=== PATIENT | male | born 1985 | race Caucasian/White ===

== ENCOUNTER 2020-12-04 09:41 | Emergency (ER) | payer MEDICARE, MEDICAID, SELFPAY ==
--- NOTE | ~2020-12-04 | CT_ITS ---
EXAMINATION: CT ABDOMEN AND PELVIS WITHOUT CONTRAST CLINICAL INFORMATION: Nausea/vomiting/diarrhea and left lower quadrant abdominal pain. COMPARISON: CT abdomen pelvis 07/28/2019 TECHNIQUE: Multidetector volumetric imaging was performed from the superior aspect of the liver through the pubic symphysis. Sagittal and coronal reformatted images were obtained on the technologist's workstation. This CT examination was performed using dose optimization techniques as appropriate, variously including the following: *Automated exposure control *Adjustment of mA and/or kV according to patient size (this includes techniques or standardized protocols for targeted exams where dose is matched to indication/reason for exam; i.e. extremities or head) *Use of iterative reconstruction technique DLP: 442 mGy-cm FINDINGS: LUNG BASES: There is platelike atelectasis right lung base. The heart size is normal. There is a small hiatal hernia. LIVER, GALLBLADDER, AND BILIARY TREE: The liver is normal in size, shape, and attenuation. No focal hepatic lesion or biliary ductal dilatation is present. The gallbladder is unremarkable with no evidence of radiopaque gallstones, gallbladder wall thickening, or obvious pericholecystic inflammatory changes. PANCREAS: Unremarkable. SPLEEN: Unremarkable. ADRENAL GLANDS: Unremarkable. KIDNEYS AND URETERS: The kidneys are normal in size, shape, and attenuation. No hydronephrosis, hydroureter, or calculi seen. No perinephric stranding. BLADDER: Unremarkable. GASTROINTESTINAL TRACT: There is mild mural thickening involving the ascending transverse and descending colon but no recorded fat stranding obstruction seen. The small bowel loops are normal caliber. The appendix is not visualized. There is no free air or free fluid. ABDOMINAL WALL: No significant hernia is appreciated. LYMPH NODES: Normal. VASCULAR: Unremarkable. PELVIC VISCERA: There is no free fluid or free air. OSSEOUS STRUCTURES: There is degenerative disc changes with vacuum disc phenomena L5-S1 disc level. No lytic or sclerotic process seen. CT/CT abdomen pelvis wo con IMPRESSION: Nonspecific mild mural thickening involving the entire colon without pericolic fat stranding Scattered colonic diverticulosis without diverticulitis. No obstruction or free air seen.
[2020-12-04 09:42] VITALS: BP 149/77; PULSE 97; RESP 18; TEMP 36.8; O2SAT 97; BMI 22.5
[2020-12-04] MEDS: LORazepam 1 MG TABLET 2 MG PO (11:00)
[2020-12-04] MEDS: Acetaminophen 325 MG TABLET 975 MG PO (11:00)
[2020-12-04] MEDS: Ondansetron ODT 4 MG TAB.RAPDIS TRANSLINGU (11:01)
--- NOTE | 2020-12-04 11:03 | PC.NURSE ---
patient medicated per order, pt denies pain at this time, pt ambulating independently to bathroom to give urine, will have tech draw labs and continue to monitor.
--- NOTE | 2020-12-04 11:33 | ED.NAVMDI ---
HPI - Nausea/Vomiting/Diarrhea General Chief complaint: Nausea/Vomiting/Diarrhea Stated complaint: Nausea, vomiting,diarrea Time Seen by Provider: 12/04/20 10:24 Source: patient Mode of arrival: ambulatory Limitations: no limitations History of Present Illness HPI Narrative: 35-year-old male with a past medical history of seizure disorder and chronic back pain presenting to the ED with complaints of nausea/vomiting/diarrhea with left lower quadrant abdominal pain since with associated subjective fevers. He reports he is not vaccinated with COVID. He denies any recent travel or sick contacts or possible bad food exposure. He denies any measured fevers, chills, dizziness, headaches, chest pain, shortness of breath, cough, sore throat, radiation of the abdominal pain, worsening back pain, hematuria, dysuria, abnormal penile discharge, constipation, black or bloody stools or weakness or rashes. Patient denies any other symptoms complaints or concerns at this time. MD elicited complaint: nausea, vomiting, diarrhea and abdominal pain Onset (ago): day(s) (3 days worse today) Description of vomiting: bilious Description of diarrhea: watery Associated nausea: Yes Associated abdominal pain: Yes Location of pain: LLQ Radiation: does not radiate Pain consistency: constant Severity: severe Pain scale (0-10): 10 Quality: aching and constant Exacerbating factors: none Relieving factors: none Associated symptoms: fever/chills, loss of appetite and nausea/vomiting Related Data Previous Rx's Medication Instructions Recorded acetaminophen 500 mg tablet 1,000 mg PO QID PRN #14 tab 12/04/20 (Tylenol Extra Strength) amoxicillin 875 mg-potassium 1 tab PO BID 10 Days #20 tab 12/04/20 clavulanate 125 mg tablet (Augmentin) ibuprofen 800 mg tablet 800 mg PO Q8H PRN #14 tab 12/04/20 lorazepam 1 mg tablet (Ativan) 1 mg PO TID PRN #10 tab 12/04/20 ondansetron HCl 4 mg tablet 4 mg PO Q8H PRN #14 tab 12/04/20 (Zofran) Allergies Allergy/AdvReac Type Severity Reaction Status Date / Time No Known Allergies Allergy Unverified 01/21/20 15:25 [No Known Allergies*] Review of Systems Review of Systems: Constitutional : + Fever, + Chills, No Night Sweats, No Fatigue, No Malaise Cardiovascular : No Chest Pain, No SOB Respiratory : No Cough, No Sputum, No Wheezing, No Dyspnea Gastrointestinal : + Nausea, + Vomiting, + Diarrhea, + abdominal Pain, No Hematochezia, No Melena Genitourinary : No irregular bleeding, No Dysuria, No Urinary Frequency, No Hematuria,No Urinary Incontinence, No Urgency, No Flank Pain Musculoskeletal : No joint pain, No Myalgias, No Joint Swelling Skin : No Skin Lesions, No rash Neuro : No Weakness, No Numbness, No Paresthesias, No Loss of Consciousness, No Dizziness, No Headache Heme/Lymph: No Lymphadenopathy Endocrine : No Temperature Intolerance Yes all other systems are reviewed and are negative Gastrointestinal: Gastrointestinal: Reports nausea PMFSH Past Medical History Attestation statement: The following information was validated with the patient. Surgical History H/O hand surgery Social History Social History Alcohol intake: never Patient Tobacco Use Status: Current someday Tobacco user Use of substances other than those prescribed or required for medical reasons: Yes Substance Use Type: Marijuana Advance Directives: No Advance Directives Information Provided: No Physical Exam Vital Signs: Vital Signs: Last Vital Signs Temp 98.2 F 12/04/20 12:00 Pulse 67 12/04/20 12:00 Resp 17 12/04/20 12:00 BP 125/86 12/04/20 12:00 Pulse Ox 96 12/04/20 12:00 Body Mass Index 22.5 vital signs have been reviewed as normal and appeared to be correct. Blood pressure hypertensive 149/77. Heart rate tachycardic at 97. Respiration rate normal. Temperature normal. Oxygen saturation normal. Appearance: Alert. Oriented X3. No acute distress. Head: Normal external exam. Normocephalic. Eyes: PERRLA. EOMI. Conjunctiva and sclera normal. Eyelids normal. ENT: Pharynx normal. Uvula midline. Moist mucous membranes. Neck: Normal inspection. Neck supple. FROM. No adenopathy. No meningeal signs. CVS: Normal heart rate and rhythm. Heart sound normal. No murmurs noted. Pulses normal throughout. Respiratory: No respiratory distress. Painless inspiration. Breath sounds normal. No wheezes/rales/rhonchi noted. Chest nontender. No accessory muscle usage noted or decreased air movement noted. Abdomen: Soft and moderate tenderness to palpation to left lower quadrant with guarding. Nondistended. No rigidity. Bowel sounds normal in all 4 quadrants. No distention noted. No organomegaly noted. No visible injury noted. No rebound tenderness. Negative Rovsing sign. Negative obturator's sign. Negative psoas sign. Negative Su sign. Back: No CVA tenderness. Full range of motion noted. Skin: Skin warm and dry. Normal skin color. Normal skin turgor. No rashes/lesions/lacerations noted. Extremities: Extremities exhibit normal range of motion. Extremities nontender. Neuro: Oriented X 3. No motor deficit. No sensory deficit. Reflexes normal. Normal steady gait. Course Course Course Narrative: 10:45am - 35-year-old male with a past medical history of seizure disorder and chronic back pain presenting to the ED with complaints of nausea/vomiting/diarrhea with left lower quadrant abdominal pain since with associated subjective fevers. - patient reported that he has a phobia of needles and he wants us to place a butterfly needle to obtain labs he is refusing an IV/IV fluids and IV contrast. Once p.o. medication. Plan: Labs, CT scan abdomen and pelvis without IV contrast. Provide 2 mg of Ativan, 4 mg of Zofran and 975 mg of Tylenol then re-evaluate. Reevaluation(s) Reevaluation #1: - labs reviewed and random glucose 122. ALT 51. UA revealed 15 ketones otherwise no evidence of UTI. CT scan of abdomen pelvis revealed nonspecific mild mural thickening involving the entire colon without Rhonda colic fat stranding. Scattered colonic diverticulosis without diverticulitis. No obstruction or free air seen. Patient is tolerating p.o. fluids therefore no need for admission at this time. will DC home with symptomatic treatment and antibiotics and instructions to return if any new or worsening symptoms to follow up with primary care provider patient understands agrees with this plan. Time: 13:44 MDM - Nausea/Vomiting/Diarrhea Medical Records Attestation: I reviewed the patient's medical records. Lab Data Attestation: I reviewed the patient's lab results. Result diagrams: 12/04/20 11:36 08/01/21 11:36 Labs: Lab Results 12/04/20 12/04/20 12/04/20 Range/Units 11:36 11:36 11:36 WBC 6.3 (4.8-10.8) X10*3/uL RBC 5.23 (4.60-5.80) X10*6/uL Hgb 14.4 (14.0-18.0) g/dl Hct 43.3 (42-52) % MCV 82.8 (80-98) fL MCH 27.5 (27.0-33.0) pg MCHC 33.3 (31.0-36.0) g/dl RDW 12.0 (11.0-16.0) % Plt Count 176 (160-400) X10*3/uL MPV 12.1 (9.4-12.4) fL Immature Gran % (Auto) 0.3 (0.0-0.4) % Neut % (Auto) 68.1 (45-73) % Lymph % (Auto) 14.5 L (20-40) % Emery % (Auto) 16.7 H (2-11) % Eos % (Auto) 0.2 (0-4) % Baso % (Auto) 0.2 (0-2) % Lymph # (Auto) 0.9 L (1.2-4.9) X10*3/uL Emery # (Auto) 1.1 (0.1-1.2) X10*3/uL Eos # (Auto) 0.0 (0.0-0.4) X10*3/uL Baso # (Auto) 0.0 (0.0-0.2) X10*3/uL Abs Immat Gran (auto) 0.02 (0.00-0.03) X10*3/uL Absolute Neuts (auto) 4.3 (2.0-8.3) X10*3/uL Absolute Nucleated RBC 0.000 (0.0-0.012) X10*3/uL Nucleated RBC % (auto) 0.0 (0.0-0.2) /100WBC PT 11.3 (9.9-13.0) SEC INR 1.0 (0.9-1.1) Sodium 141 (135-145) mmol/L Potassium 3.7 (3.3-5.1) mmol/L Chloride 104 (96-108) mmol/L Carbon Dioxide 26 (22-29) mmol/L Anion Gap 15 (12-20) BUN 12 (9-16) mg/dL Creatinine 1.04 (0.5-1.4) mg/dL Estim Creat Clear Calc 112.3 Estimated GFR > 60 Random Glucose 122 H (60-115) mg/dL Calcium 9.3 (8.4-10.2) mg/dL Magnesium 1.9 (1.6-2.6) mg/dL Total Bilirubin 0.7 (0.0-1.0) mg/dL AST 37 (5-37) U/L ALT 51 H (0-40) U/L Alkaline Phosphatase 84 (39-117) U/L Total Protein 6.9 (6.5-8.0) g/dL Albumin 4.2 (3.5-5.0) g/dL Urine Color Urine Appearance Urine pH (5.0-8.0) Ur Specific [place] (1.005-1.025) Urine Protein (NEG-TRACE) MG/DL Urine Glucose (UA) (NEG) MG/DL Urine Ketones (NEG) MG/DL Urine Blood (NEG) Urine Nitrite (NEG) Ur Leukocyte Esterase (NEG) 12/04/20 Range/Units 12:28 WBC (4.8-10.8) X10*3/uL RBC (4.60-5.80) X10*6/uL Hgb (14.0-18.0) g/dl Hct (42-52) % MCV (80-98) fL MCH (27.0-33.0) pg MCHC (31.0-36.0) g/dl RDW (11.0-16.0) % Plt Count (160-400) X10*3/uL MPV (9.4-12.4) fL Immature Gran % (Auto) (0.0-0.4) % Neut % (Auto) (45-73) % Lymph % (Auto) (20-40) % Emery % (Auto) (2-11) % Eos % (Auto) (0-4) % Baso % (Auto) (0-2) % Lymph # (Auto) (1.2-4.9) X10*3/uL Emery # (Auto) (0.1-1.2) X10*3/uL Eos # (Auto) (0.0-0.4) X10*3/uL Baso # (Auto) (0.0-0.2) X10*3/uL Abs Immat Gran (auto) (0.00-0.03) X10*3/uL Absolute Neuts (auto) (2.0-8.3) X10*3/uL Absolute Nucleated RBC (0.0-0.012) X10*3/uL Nucleated RBC % (auto) (0.0-0.2) /100WBC PT (9.9-13.0) SEC INR (0.9-1.1) Sodium (135-145) mmol/L Potassium (3.3-5.1) mmol/L Chloride (96-108) mmol/L Carbon Dioxide (22-29) mmol/L Anion Gap (12-20) BUN (9-16) mg/dL Creatinine (0.5-1.4) mg/dL Estim Creat Clear Calc Estimated GFR Random Glucose (60-115) mg/dL Calcium (8.4-10.2) mg/dL Magnesium (1.6-2.6) mg/dL Total Bilirubin (0.0-1.0) mg/dL AST (5-37) U/L ALT (0-40) U/L Alkaline Phosphatase (39-117) U/L Total Protein (6.5-8.0) g/dL Albumin (3.5-5.0) g/dL Urine Color YELLOW Urine Appearance CLEAR Urine pH 6.0 (5.0-8.0) Ur Specific [place] 1.015 (1.005-1.025) Urine Protein NEG (NEG-TRACE) MG/DL Urine Glucose (UA) NEG (NEG) MG/DL Urine Ketones 15 (NEG) MG/DL Urine Blood NEG (NEG) Urine Nitrite NEG (NEG) Ur Leukocyte Esterase NEG (NEG) Imaging Data CT scan - abdomen: Attestation: I personally reviewed and interpreted this imaging study as follows: Radiologist's impression: FINDINGS: LUNG BASES: There is platelike atelectasis right lung base. The heart size is normal. There is a small hiatal hernia. LIVER, GALLBLADDER, AND BILIARY TREE: The liver is normal in size, shape, and attenuation. No focal hepatic lesion or biliary ductal dilatation is present. The gallbladder is unremarkable with no evidence of radiopaque gallstones, gallbladder wall thickening, or obvious pericholecystic inflammatory changes.? PANCREAS: Unremarkable.? SPLEEN: Unremarkable.? ADRENAL GLANDS: Unremarkable.? KIDNEYS AND URETERS: The kidneys are normal in size, shape, and attenuation. No hydronephrosis, hydroureter, or calculi seen. No perinephric stranding. ? BLADDER: Unremarkable.? GASTROINTESTINAL TRACT: There is mild mural thickening involving the ascending transverse and descending colon but no recorded fat stranding obstruction seen. The small bowel loops are normal caliber. The appendix is not visualized. There is no free air or free fluid.? ABDOMINAL WALL: No significant hernia is appreciated.? LYMPH NODES: Normal. VASCULAR: Unremarkable. PELVIC VISCERA: There is no free fluid or free air.? OSSEOUS STRUCTURES: There is degenerative disc changes with vacuum disc phenomena L5-S1 disc level. No lytic or sclerotic process seen.? CT/CT abdomen pelvis wo con IMPRESSION: Nonspecific mild mural thickening involving the entire colon without pericolic fat stranding ? Scattered colonic diverticulosis without diverticulitis. No obstruction or free air seen. Discharge Plan Discharge Clinical Impression: Diverticulosis Patient Disposition: Home, Self-Care Instructions: Diverticulosis (ED) Prescriptions: New ondansetron HCl [Zofran] 4 mg tablet 4 mg PO Q8H PRN (Reason: nausea and vomiting) Qty: 14 RF: 0 lorazepam [Ativan] 1 mg tablet 1 mg PO TID PRN (Reason: anxiety) Qty: 10 RF: 0 amoxicillin-pot clavulanate [Augmentin] 875-125 mg tablet 1 tab PO BID 10 Days Qty: 20 RF: 0 ibuprofen 800 mg tablet 800 mg PO Q8H PRN (Reason: pain) Qty: 14 RF: 0 acetaminophen [Tylenol Extra Strength] 500 mg tablet 1,000 mg PO QID PRN (Reason: fever or pain) Qty: 14 RF: 0 Referrals: Tim Oleary MD [Physician] - 2 days Stand Alone Forms: Work/School Release Print Language: Nigerien
[2020-12-04 11:44] LABS: MANUAL DIFF FLAG NO
[2020-12-04 11:47] LABS: Basophils Percent Auto 0.2 % (0-2); Eosinophils Percent Auto 0.2 % (0-4); Hematocrit 43.3 % (42-52); Hemoglobin 14.4 g/dl (14.0-18.0); Imm Gran Abs Auto 0.02 X10*3/uL (0.00-0.03); Imm Gran Pct Auto 0.3 % (0.0-0.4); Lymphocytes Absolute Auto 0.9 X10*3/uL (1.2-4.9); Lymphocytes Percent Auto 14.5 % (20-40); Mean Corpuscular HGB Conc 33.3 g/dl (31.0-36.0); Mean Corpuscular Hemoglobin 27.5 pg (27.0-33.0); Mean Corpuscular Volume 82.8 fL (80-98); Mean Platelet Volume 12.1 fL (9.4-12.4); Monocytes Absolute Auto 1.1 X10*3/uL (0.1-1.2); Monocytes Percent Auto 16.7 % (2-11); Neutrophils Absolute Auto 4.3 X10*3/uL (2.0-8.3); Neutrophils Percent Auto 68.1 % (45-73); Platelet Count 176 X10*3/uL (160-400); Red Blood Count 5.23 X10*6/uL (4.60-5.80); White Blood Count 6.3 X10*3/uL (4.8-10.8)
[2020-12-04 11:59] LABS: Prothrombin Time 11.3 SEC (9.9-13.0)
[2020-12-04 12:00] VITALS: BP 125/86; PULSE 67; RESP 17; TEMP 36.8; O2SAT 96
[2020-12-04 12:26] LABS: Alanine Aminotransferase 51 U/L (0-40); Albumin Level 4.2 g/dL (3.5-5.0); Alkaline Phosphatase 84 U/L (39-117); Anion Gap 15 (12-20); Aspartate Amino Transferase 37 U/L (5-37); Bilirubin Total 0.7 mg/dL (0.0-1.0); Blood Urea Nitrogen 12 mg/dL (9-16); Calcium 9.3 mg/dL (8.4-10.2); Carbon Dioxide 26 mmol/L (22-29); Chloride 104 mmol/L (96-108); Creatinine Clr Calc Pharmacy 112.3; Estimated Glomerular Filt Rate > 60; Glucose Random 122 mg/dL (60-115); Magnesium 1.9 mg/dL (1.6-2.6); Potassium 3.7 mmol/L (3.3-5.1); Sodium 141 mmol/L (135-145); Total Protein 6.9 g/dL (6.5-8.0)
--- NOTE | 2020-12-04 12:29 | PC.NURSE ---
urine obtained, pt states he currently has no pain or nausea, vss, will continue to monitor.
[2020-12-04 12:42] LABS: Appearance Urine CLEAR; Color Urine YELLOW; Glucose Urine UA NEG (NEG); Leukocyte Esterase Urine NEG (NEG); Nitrite Urine NEG (NEG); Specific Gravity - Urine 1.015 (1.005-1.025); Urine Blood NEG (NEG); Urine Ketones 15 MG/DL (NEG); Urine Protein NEG (NEG-TRACE)
== END 2020-12-04 13:56 | disposition home or self-care (01) ==
PROVIDERS: Physician Assistant Medical; Emergency Provider Student in an Organized Health Care Education/Training Program
DX: K57.30 Diverticulosis of large intestine without perforation or abscess without bleeding (principal); R10.32 Left lower quadrant pain; R11.2 Nausea with vomiting, unspecified; F17.200 Nicotine dependence, unspecified, uncomplicated; Z71.6 Tobacco abuse counseling; Z79.899 Other long term (current) drug therapy
CPT/HCPCS: 36415; 74176; 80053; 81003; 83735; 85025; 85610; 99284

== ENCOUNTER 2021-02-27 10:53 | Emergency (ER) | payer MEDICARE, MEDICAID, SELFPAY ==
[2021-02-27 11:01] VITALS: BP 108/78; PULSE 80; RESP 16; TEMP 37; O2SAT 96; BMI 22.5
== END 2021-02-27 18:41 | disposition left against medical advice (07) ==
LOC: HO.ED 12:48
PROVIDERS: Emergency Provider Emergency Medicine
DX: R31.9 Hematuria, unspecified (principal); M54.9 Dorsalgia, unspecified
CPT/HCPCS: 99281; 99282

== ENCOUNTER 2021-06-20 15:50 | Emergency (ER) | payer MEDICARE, MEDICAID, SELFPAY ==
--- NOTE | ~2021-06-20 | XR_ITS ---
EXAMINATION: XR TOES, RIGHT CLINICAL INFORMATION: Right total crush injury COMPARISON: None TECHNIQUE: 3 views of the right toes were obtained. FINDINGS: In the lateral view only, there is some mild irregularity at the base of the middle phalanx of the fourth toe. This could represent a fracture although it is not seen in any other. Please correlate with clinical exam. XR/XR toe RT min 2V IMPRESSION: Question of a cortical fracture seen at the base of the middle phalanx of the fourth toe appreciated only on the lateral radiograph.
[2021-06-20 16:33] VITALS: BP 140/90; PULSE 71; RESP 18; TEMP 36.8; O2SAT 99; BMI 22.5
--- NOTE | 2021-06-20 16:53 | ED.LOWEXIN ---
HPI - Extremity Injury (Lower) General Chief Complaint: Extremity Injury, Lower Stated Complaint: toe smashed by garage door Time Seen by Provider: 06/20/21 16:47 Source: patient Mode of arrival: ambulatory Limitations: no limitations History of Present Illness HPI Narrative: 35 yold male presents to the ED for right 4th toe pain. patient states garage door fell on his right foot when he pulled the garage door down. patient deneis any head trauma or any other trauma to his body. Related Data Previous Rx's Medication Instructions Recorded acetaminophen 500 mg tablet 1,000 mg PO QID PRN #14 tab 12/04/20 (Tylenol Extra Strength) amoxicillin 875 mg-potassium 1 tab PO BID 10 Days #20 tab 12/04/20 clavulanate 125 mg tablet (Augmentin) ibuprofen 800 mg tablet 800 mg PO Q8H PRN #14 tab 12/04/20 lorazepam 1 mg tablet (Ativan) 1 mg PO TID PRN #10 tab 12/04/20 ondansetron HCl 4 mg tablet 4 mg PO Q8H PRN #14 tab 12/04/20 (Zofran) naproxen 500 mg tablet 500 mg PO BID PRN 10 Days #20 tab 06/20/21 oxycodone-acetaminophen 5 mg-325 1 tab PO TID PRN 3 Days #9 tab 06/20/21 mg tablet (Percocet) Allergies Allergy/AdvReac Type Severity Reaction Status Date / Time No Known Allergies Allergy Verified 06/20/21 16:32 [No Known Allergies*] Review of Systems Review of Systems: toe pain. Yes all other systems are reviewed and are negative PMFSH Past Medical History Surgical History H/O hand surgery Social History Social History Alcohol intake: never Patient Tobacco Use Status: Current someday Tobacco user Substance Use Type: Marijuana Advance Directives: No Advance Directives Information Provided: Yes Physical Exam Vital Signs: Vital Signs: Last Vital Signs Temp 98.3 F 06/20/21 16:33 Pulse 71 06/20/21 16:33 Resp 18 06/20/21 16:33 BP 140/90 H 06/20/21 16:33 Pulse Ox 99 06/20/21 16:33 BMI result Body Mass Index 22.5 Const: General: cooperative, healthy appearing, comfortable, no acute distress, well developed, alert, awake and Physically active Orientation/consciousness: patient oriented x3 HENMT: Head: Yes normal to inspection, Yes No palpable skull fracture present, Yes normocephalic, Yes atraumatic and No abrasion Eyes: General: appearance normal, both eyes and all related structures Neck: Neck: Yes normal visual inspection, Yes full ROM, Yes no lymphadenopathy, Yes no meningeal signs, Yes trachea midline, Yes supple, No anterior neck swelling and No tender Chest: Chest palpation & inspection: normal inspection of the chest and normal palpation of entire chest wall Resp: Effort & Inspection: normal respiratory effort and able to speak in complete sentences Auscultation: clear to auscultation bilaterally Cardio: Jugular venous distension: no JVD Heart sounds: S1 normal heart sound present and S2 normal heart sound present GI: Inspection: Yes normal to inspection and No abdominal wall ecchymosis Palpation (GI): Soft to palpation, not firm, nontender, no guarding and not rigid : General: No CVA tenderness and Yes no CVA tenderness Back/Spine/Pelvis: Back: no CVA tenderness, No CVA tenderness and No back tenderness Skin: General skin exam: no rashes or lesions noted and elasticity normal Neuro: General: patient oriented x3, gait normal, no meningeal signs and CN's II-XI intact bilaterally Cranial nerves: Yes CN's II-XII intact bilaterally Extrem: General: Yes normal to inspection and Yes full ROM Ankle/foot/toe images: 1. positive for ecchymossis, tenderness, and swelling. capillary refill intact. Rest of lower extremity is normal and motor/neuro/vascular exam is intact. Course Course Course Narrative: Patient sent for foot xray Reevaluation(s) Reevaluation #1: Xray shows 4th toe phalanx fracture. Will order kathia tape and post op shoe Time: 17:24 MDM - Extremity Injury (Lower) MDM Narrative Medical decision making narrative: toe fracture Discharge Plan Discharge Clinical Impression: Fracture of toe Patient Disposition: Home, Self-Care Instructions: Toe Fracture (ED) Additional Instructions: X-ray shows toe fracture. You any follow-up with the orthopedic surgeon. Return to ED for worsening pain, swelling of extremity, redness, pus discharge, fever, chills, hotness, coolness, red streaks, or any other concerning symptoms. Prescriptions: New naproxen 500 mg tablet 500 mg PO BID PRN (Reason: pain) 10 Days Qty: 20 0RF oxycodone-acetaminophen [Percocet] 5-325 mg tablet 1 tab PO TID PRN (Reason: pain) 3 Days Qty: 9 0RF Rx Instructions: side effect is drowsiness. Do not take at work or while driving. No Action ondansetron HCl [Zofran] 4 mg tablet 4 mg PO Q8H PRN (Reason: nausea and vomiting) Qty: 14 0RF lorazepam [Ativan] 1 mg tablet 1 mg PO TID PRN (Reason: anxiety) Qty: 10 0RF amoxicillin-pot clavulanate [Augmentin] 875-125 mg tablet 1 tab PO BID 10 Days Qty: 20 0RF ibuprofen 800 mg tablet 800 mg PO Q8H PRN (Reason: pain) Qty: 14 0RF acetaminophen [Tylenol Extra Strength] 500 mg tablet 1,000 mg PO QID PRN (Reason: fever or pain) Qty: 14 0RF Referrals: Bala Caba MD [Physician] - 2 days (Right 4th toe fracture) Stand Alone Forms: Work/School Release Interventions: ED Discharge Assessment Last Done: 06/20/21 18:19 Discharge Date/Time: 06/20/21 18:21 Print Language: Japanese
[2021-06-20] MEDS: oxyCODONE HCl Immed Release 5 MG TABLET PO (16:54)
[2021-06-20] MEDS: Ibuprofen 800 MG TABLET PO (16:59)
== END 2021-06-20 18:21 | disposition home or self-care (01) ==
PROVIDERS: Emergency Provider Internal Medicine
DX: S92.511A Displaced fracture of proximal phalanx of right lesser toe(s), initial encounter for closed fracture (principal); M79.671 Pain in right foot; F17.200 Nicotine dependence, unspecified, uncomplicated; F12.90 Cannabis use, unspecified, uncomplicated; Y29.XXXA Contact with blunt object, undetermined intent, initial encounter; Y93.9 Activity, unspecified; Y92.009 Unspecified place in unspecified non-institutional (private) residence as the place of occurrence of the external cause; Y99.9 Unspecified external cause status; Z79.899 Other long term (current) drug therapy; Z71.6 Tobacco abuse counseling
CPT/HCPCS: 73660; 99283

== ENCOUNTER 2021-06-28 21:35 | Emergency (ER) | payer MEDICARE, MEDICAID, SELFPAY ==
--- NOTE | ~2021-06-28 | XR_ITS ---
EXAMINATION: X-RAY RIGHT HAND CLINICAL INFORMATION: Injury. COMPARISON: Radiograph of the right hand dated from 04/18/2017. TECHNIQUE: 4 views of the right hand were obtained. FINDINGS: No acute fractures or malalignment. Redemonstration of an old small avulsion fracture at the lateral base of the proximal phalanx of the middle finger. Joint alignment is maintained. No foreign bodies. XR/XR hand wrist RT IMPRESSION: No acute fractures or malalignment. Old avulsion fracture in the base of the proximal phalanx of the middle finger.
[2021-06-28 21:45] VITALS: BP 135/89; PULSE 76; RESP 18; TEMP 37.1; O2SAT 98; BMI 22.5
--- NOTE | 2021-06-28 23:05 | ED_ITS ---
HPI - Extremity Problem General Chief complaint: Extremity Injury, Upper Stated complaint: pain in right hand,,punched door Time Seen by Provider: 06/28/21 23:05 Source: patient Mode of arrival: ambulatory Limitations: no limitations History of Present Illness HPI Narrative: 35-year-old male presents to the emergency department status post punching a brick wall with his right hand now complaining of severe right hand/wrist pain. This occurred prior to his arrival. Reports 8 and 10 pain non radiating. Worse with movement better at rest. Denies numbness, tingling, chest pain, shortness of breath, loss of sensation. He is [id number]. MD Complaint: joint paint Onset (ago): hour(s) (1) Pain Consistency: constant Location: right Severity scale (1-10): 8 Quality: constant Radiation: none Relieving factors: immobilization Exacerbating factors: range of motion Associated symptoms: denies other symptoms Related Data Previous Rx's Medication Instructions Recorded acetaminophen 500 mg tablet 1,000 mg PO QID PRN #14 tab 12/04/20 (Tylenol Extra Strength) amoxicillin 875 mg-potassium 1 tab PO BID 10 Days #20 tab 12/04/20 clavulanate 125 mg tablet (Augmentin) ibuprofen 800 mg tablet 800 mg PO Q8H PRN #14 tab 12/04/20 lorazepam 1 mg tablet (Ativan) 1 mg PO TID PRN #10 tab 12/04/20 ondansetron HCl 4 mg tablet 4 mg PO Q8H PRN #14 tab 12/04/20 (Zofran) naproxen 500 mg tablet 500 mg PO BID PRN 10 Days #20 tab 06/20/21 oxycodone-acetaminophen 5 mg-325 1 tab PO TID PRN 3 Days #9 tab 06/20/21 mg tablet (Percocet) Allergies Allergy/AdvReac Type Severity Reaction Status Date / Time No Known Allergies Allergy Verified 06/28/21 21:45 [No Known Allergies*] Review of Systems Review of Systems: Constitutional : No Weight loss, No Fever, No Chills, No Fatigue, No Malaise ENT/Mouth : No sore throat, No Rhinorrhea Eyes: No Eye Pain, No Swelling, No Redness Cardiovascular : No Chest Pain, No SOB, No Dyspnea on Exertion, No Orthopnea, No Edema, No Palpitations Respiratory : No Cough, No Sputum, No Wheezing Gastrointestinal : No Nausea, No Vomiting, No Diarrhea, No Constipation, No abdominal Pain, No Hematochezia, No Melena Genitourinary : No Dysuria, No Urinary Frequency, No Hematuria, Musculoskeletal : + joint pain, No Myalgias, No Joint Swelling Skin : No Skin Lesions, No rash Neuro : No Weakness, No Numbness, No Dizziness, No Headache Psych : No Anxiety/Panic, No Depression All other systems reviewed and are negative Yes all other systems are reviewed and are negative [facility] Past Medical History Attestation statement: The following information was validated with the patient. Source: old records reviewed and nursing notes reviewed Surgical History H/O hand surgery Social History Social History Alcohol intake: never Patient Tobacco Use Status: Current someday Tobacco user Substance Use Type: Marijuana Advance Directives: No Physical Exam Vital Signs: Vital Signs: Last Vital Signs Temp 98.7 F 06/28/21 21:45 Pulse 76 06/28/21 21:45 Resp 18 06/28/21 21:45 BP 135/89 06/28/21 21:45 Pulse Ox 98 06/28/21 21:45 BMI result Body Mass Index 22.5 Appearance: Alert.? Oriented X3.? No acute distress.? Head: Normocephalic, atraumatic, no step-offs or deformities Eyes: Pupils equal, round and reactive to light.? ENT: Pharynx normal.? Neck: Normal inspection.? Neck supple.? CVS: Normal heart rate and rhythm.? Pulses normal.? Respiratory: No respiratory distress.? Breath sounds normal.? Abdomen: Soft and nontender.? Skin: Skin warm and dry.? Normal skin color.? Normal skin turgor.? Extremities: No lower extremity edema.? No calf ttp. 5/5 strength to bilateral upper and lower extremities 2+ radial pulses equal and bilateral. Cap refil < 2 seconds. Can wiggle all fingers b/l. +Pain with making a wrist w/ right hand. Sensory and motor intact. Pain to palpation of finger 3-4. Tells me it hurts to move fingers but he is able to do it. + right hand ecchymosis and pain w/ palpation to dorsal aspect. No evident ligament or tendon involvement. Back: No midline tenderness, no C-spine tenderness, full range of motion, no CVA tenderness bilaterally Neuro: Oriented X 3.? No motor deficit.? No sensory deficit. CN 2-12 intact Course Reevaluation(s) Reevaluation #1: X-ray shows no acute fractures or malalignment. An old avulsion fractures noted in the base of the proximal phalanx of the middle finger. No acute findings. At this time patient will be discharged home. Given Tylenol for pain. Will yane wrap patients hand Time: 23:08 MDM - Extremity (Nontraumatic) MDM Narrative Medical decision making narrative: [id number] 35 yo m no pmhx presents w/ right hand pain s/p punching a wall today out of anger. Reports pain worse with movement PE significant for pain with making a fist with right hand and with pain to palpation of finger 3-4. Tells me it hurts to move fingers but he is able to do it. Plan- xray Medical Records Attestation: I reviewed the patient's medical records. Lab Data Attestation: I reviewed the patient's lab results. Critical Care Time Critical Care Time Critical Care Time: No Discharge Plan Discharge Clinical Impression: Hand pain Patient Disposition: Home, Self-Care Instructions: R.I.C.E. Treatment (ED) Additional Instructions: Take your medications as prescribed. If you were prescribed antibiotics today, it is important that you take your medication to their entirety, do not skip any doses, do not finish them early. Follow-up with your primary care provider this week. Return to the emergency department with new or worsening symptoms. Such as swelling to the extremity, pain, loss of sensation numbness, tingling, fevers, chills, nausea, vomiting, headache, dizziness. You can take ibuprofen every 6 hours, Tylenol every 4 as needed for pain. In case of emergency call 911 Prescriptions: No Action ondansetron HCl [Zofran] 4 mg tablet 4 mg PO Q8H PRN (Reason: nausea and vomiting) Qty: 14 0RF lorazepam [Ativan] 1 mg tablet 1 mg PO TID PRN (Reason: anxiety) Qty: 10 0RF amoxicillin-pot clavulanate [Augmentin] 875-125 mg tablet 1 tab PO BID 10 Days Qty: 20 0RF ibuprofen 800 mg tablet 800 mg PO Q8H PRN (Reason: pain) Qty: 14 0RF acetaminophen [Tylenol Extra Strength] 500 mg tablet 1,000 mg PO QID PRN (Reason: fever or pain) Qty: 14 0RF naproxen 500 mg tablet 500 mg PO BID PRN (Reason: pain) 10 Days Qty: 20 0RF oxycodone-acetaminophen [Percocet] 5-325 mg tablet 1 tab PO TID PRN (Reason: pain) 3 Days Qty: 9 0RF Rx Instructions: side effect is drowsiness. Do not take at work or while driving. Referrals: Physician,None [Primary Care Provider] - 2 days Margi Pereira MD [Physician] - 2 weeks Stand Alone Forms: Work/School Release
[2021-06-28] MEDS: Acetaminophen 325 MG TABLET 975 MG PO (23:38)
== END 2021-06-29 00:09 | disposition home or self-care (01) ==
LOC: HO.ED 23:22
PROVIDERS: Emergency Provider Emergency Medicine
DX: M79.641 Pain in right hand (principal)
CPT/HCPCS: 73110; 73130; 99283; 99284

== ENCOUNTER 2021-07-13 08:40 | Outpatient (REF) | payer MEDICARE, MEDICAID, SELFPAY | END 2021-07-13 08:41 | disposition home or self-care (01) | LOC: HO.HOSX 08:40 | PROVIDERS: Visit Provider Physician Assistant | DX: Z13.89 Encounter for screening for other disorder (principal) ==

== ENCOUNTER 2021-10-27 10:20 | Emergency (ER) | payer MEDICARE, MEDICAID, SELFPAY ==
--- NOTE | ~2021-10-27 | XR_ITS ---
EXAMINATION: XR FOOT, RIGHT CLINICAL INFORMATION: Pain. Trauma. COMPARISON: None TECHNIQUE: AP, lateral, and oblique views of the right foot. FINDINGS: Bone alignment is normal. No fracture or dislocation is seen. There is soft tissue swelling over the metatarsal bones. There is a small 1 to 2 mm radiopaque density or calcification in the soft tissues in between the third and fourth toes. This is new from June 2021 exam XR/XR foot RT min 3V IMPRESSION: Soft tissue swelling. No fracture seen.
[2021-10-27 10:21] VITALS: BP 121/81; PULSE 88; RESP 18; TEMP 36.6; O2SAT 98; BMI 23.2
--- NOTE | 2021-10-27 10:28 | ED_ITS ---
HPI - Extremity Injury (Lower) General Chief Complaint: Extremity Injury, Lower Stated Complaint: foot INJ Time Seen by Provider: 10/27/21 10:28 Source: patient Mode of arrival: wheelchair Limitations: no limitations History of Present Illness HPI Narrative: Patient is a 35 year old male presenting to the emergency department today with right foot pain. Patient states that that a heavy metal object was dropped on his right foot and now he is having pain. Patient denies any dizziness, lightheadedness, abdominal pain, nausea, vomiting, fever, chills, blurry vision, double vision, loss of vision, chest pain, difficulty breathing, shortness of breath, back pain, night sweats, pain with urination, increased urinary frequency, increased urinary urgency, blood in his urine or stool, syncope or a near syncopal episode, recent trauma or falls, bowel incontinence, bladder incontinence, bowel retention, bladder retention, or any other complaints at this time. MD complaint: foot injury Onset (ago): minute(s) Type of Injury: blunt Severity: mild Severity scale (1-10): 3 Relieving factors: nothing Exacerbating factors: nothing Context: direct blow Other symptoms: none Related Data Previous Rx's Medication Instructions Recorded acetaminophen 500 mg tablet 1,000 mg PO QID PRN fever or pain 12/04/20 (Tylenol Extra Strength) #14 tabs amoxicillin 875 mg-potassium 1 tab PO BID 10 days #20 tabs 12/04/20 clavulanate 125 mg tablet (Augmentin) ibuprofen 800 mg tablet 800 mg PO Q8H PRN pain #14 tabs 12/04/20 lorazepam 1 mg tablet (Ativan) 1 mg PO TID PRN anxiety #10 tabs 12/04/20 ondansetron HCl 4 mg tablet 4 mg PO Q8H PRN nausea and 12/04/20 (Zofran) vomiting #14 tabs naproxen 500 mg tablet 500 mg PO BID PRN pain 10 days #20 06/20/21 tabs oxycodone-acetaminophen 5 mg-325 1 tab PO TID PRN pain 3 days #9 06/20/21 mg tablet (Percocet) tabs Allergies Allergy/AdvReac Type Severity Reaction Status Date / Time No Known Allergies Allergy Verified 06/28/21 21:45 [No Known Allergies*] Review of Systems Constitutional: Constitutional: Reports no additional constitutional complaints, Denies chills, Denies fever(s) and Denies night sweats Eyes: Eyes: Reports no additional eye complaints, Denies blurry vision, Denies change in vision, Denies diplopia, Denies eye discharge, Denies loss of vision and Denies eye pain ENT: Denies dizziness Cardiovascular: Cardiovascular: Reports no additional cardiovascular com plaints, Denies chest pain, Denies lightheadedness, Denies Loss of Consciousness and Denies dyspnea Respiratory: Respiratory: Reports no additional respiratory complaints and Denies dyspnea Gastrointestinal: Gastrointestinal: Reports no additional gastrointestinal complaints, Denies abdominal pain, Denies melena, Denies hematochezia, Denies change in bowel habits and Denies change in stool character Genitourinary: Genitourinary: Reports no additional male genitourinary complaints, Denies hematuria, Denies oliguria, Denies difficulty urinating, Denies dysuria, Denies urinary frequency, Denies urinary hesitancy, Denies urinary incontinence and Denies urinary urgency Musculoskeletal: Musculoskeletal: Reports no additional musculoskeletal complaints, Denies numbness and Denies tingling Comments: right foot pain Neurologic: Denies dizziness, Denies loss of vision, Denies numbness and Denies tingling Psychiatric: Psychiatric: Reports no additional psychiatric complaints Endocrine: Endocrine: Reports no additional endocrine complaints Hematologic/Lymphatic: Hematologic/Lymphatic: Reports no additional hematologic/lymphatic complaints Allergic/Immunologic: Allergic/Immunologic: Reports no additional allergic/immunologic complaints [facility] Past Medical History Attestation statement: The following information was validated with the patient. Source: old records reviewed Surgical History H/O hand surgery Social History Social History Alcohol intake: never Patient Tobacco Use Status: Current someday Tobacco user Substance Use Type: Marijuana Advance Directives: No Advance Directives Information Provided: Yes Physical Exam Vital Signs: Vital Signs: Last Vital Signs Temp 98 F 10/27/21 10:21 Pulse 88 10/27/21 10:21 Resp 18 10/27/21 10:21 BP 121/81 10/27/21 10:21 Pulse Ox 98 10/27/21 10:21 O2 Del Method 10/27/21 10:21 BMI result Body Mass Index 23.2 Const: General: cooperative, no acute distress, alert and awake Nutritional Appearance: well nourished Orientation/consciousness: patient oriented x3 Limitations: no limitations HEENT: Head: Yes normal to inspection and Yes atraumatic Ears: hearing grossly normal bilaterally and external ears normal General nose exam: Normal external nose present, no nasal discharge noted and no epistaxis Face and sinus: Yes normal facial exam, No abrasion and No laceration Mouth: Normal oral and palatal mucosa present, no drooling and no muffled voice Eyes: General: appearance normal, both eyes and all related structures Periorbital: periorbital findings normal Eyelids: Yes eyelids normal Conjunctivae: conjunctivae normal Pupils: Equal, round and reactive pupils present EOM: EOMs intact bilaterally Neck: Neck: Yes normal visual inspection, Yes full ROM and Yes no lymphadenopathy Chest: Chest palpation & inspection: normal inspection of the chest Resp: Effort & Inspection: normal respiratory effort and able to speak in complete sentences Auscultation: clear to auscultation bilaterally Cardio: Rate: regular rate Rhythm: regular rhythm GI: Inspection: Yes normal to inspection Neuro: General: patient oriented x3 and moves all extremities Cranial nerves: Yes Equal, round and reactive pupils present Cognition (Neuro): normal cognition Motor exam (neuro): 5/5 motor strength present throughout Sensory Exam: Normal double simultaneous stimulation for sensation Coordination: [id number] test normal Extrem: Other: bruising to the dorsal aspect of the right foot General: Yes full ROM and Yes capillary refill normal Psych: Appearance: grossly normal Mental Status: mental status grossly normal Affect: normal affect Attitude: cooperative Thought process: Normal thought process present Thought content: Normal thought content present Insight: Good insight present (Psych) MDM - Extremity Injury (Lower) MDM Narrative Medical decision making narrative: Patient is a 35 year old male presenting to the emergency department today with right foot pain. Patient's physical exam showed mild bruising to the dorsal aspect of the right foot. Patient's right foot x-ray showed no acute process. I explained my physical exam findings as well as all test results to the patient. I answered all questions asked by the patient. Patient received PO Tylenol which he stated helped his pain significantly. Due to the patient's pain level and mechanism of injury, I still have a high suspicion of fracture despite the negative XR. Patient was placed in a walking boot and given crutches with crutch instructions. I stressed the importance of the patient taking his medication as prescribed. I stressed the importance of the patient following up with his primary care provider and an orthopedist. I stressed the importance of the patient returning to the emergency department immediately if his symptoms were to worsen or if he were to develop any dizziness, shortness of breath, difficulty breathing, chest pain, blurry vision, loss of vision, nausea, vomiting, abdominal pain, fever, chills, back pain, or any other complaints. Patient verbalized agreement and understanding with this treatment plan and discharge. Differential Diagnosis Differential diagnosis: Likely fracture of toe (fracture of foot) Medical Records Attestation: I reviewed the patient's medical records. Imaging Data Right foot x-ray: Attestation: I personally reviewed and interpreted this imaging study as follows: My impression: No obvious fracture seen. Radiologist's impression: EXAMINATION: XR FOOT, RIGHT CLINICAL INFORMATION: Pain. Trauma.? COMPARISON: None? TECHNIQUE: AP, lateral, and oblique views of the right foot. FINDINGS: Bone alignment is normal. No fracture or dislocation is seen. There is soft tissue swelling over the metatarsal bones. There is a small 1 to 2 mm radiopaque density or calcification in the soft tissues in between the third and fourth toes. This is new from June 2021 exam? XR/XR foot RT min 3V IMPRESSION: Soft tissue swelling. No fracture seen. Dictated By: Constanza Leal MD Signed By: Electronically signed by Constanza Leal MD 10/27/21 1131 Procedures Orthopedic Splinting/Casting Injury #1: Side: right Lower Extremity Injury Location: foot Lower Extremity Immobilizer: boot orthosis Other Orthopedic Equipment: crutches Discharge Plan Discharge Clinical Impression: Foot fracture Patient Disposition: Home, Self-Care Instructions: Crutch Instructions (ED), Foot Fracture in Adults (ED) Additional Instructions: Follow up with your primary care provider and an orthopedic physical therapist. Return to the emergency department immediately if your symptoms worsen or if you develop any dizziness, shortness of breath, difficulty breathing, chest pain, blurry vision, loss of vision, nausea, vomiting, abdominal pain, fever, chills, back pain, or any other complaints. Prescriptions: No Action ondansetron HCl [Zofran] 4 mg tablet 4 mg PO Q8H PRN (Reason: nausea and vomiting) Qty: 14 0RF lorazepam [Ativan] 1 mg tablet 1 mg PO TID PRN (Reason: anxiety) Qty: 10 0RF amoxicillin-pot clavulanate [Augmentin] 875-125 mg tablet 1 tab PO BID 10 Days Qty: 20 0RF ibuprofen 800 mg tablet 800 mg PO Q8H PRN (Reason: pain) Qty: 14 0RF acetaminophen [Tylenol Extra Strength] 500 mg tablet 1,000 mg PO QID PRN (Reason: fever or pain) Qty: 14 0RF naproxen 500 mg tablet 500 mg PO BID PRN (Reason: pain) 10 Days Qty: 20 0RF oxycodone-acetaminophen [Percocet] 5-325 mg tablet 1 tab PO TID PRN (Reason: pain) 3 Days Qty: 9 0RF Rx Instructions: side effect is drowsiness. Do not take at work or while driving. Referrals: [facility] Family Medicine [Provider Group] (Call to establish and follow up with a primary care provider. If you have a primary care provider, please follow up with their office. ) [facility] Primary Care, Pasquale [Provider Group] (Call to establish and follow up with a primary care provider. If you have a primary care provider, please follow up with their office. ) [facility] Primary Care,Rocio [Provider Group] (Call to establish and follow up with a primary care provider. If you have a primary care provider, please follow up with their office. ) [facility] [place] [facility] [Provider Group] (Call to establish and follow up with an orthopedic provider. ) Stand Alone Forms: Work/School Release Interventions: ED Discharge Assessment Last Done: 10/27/21 11:32 Discharge Date/Time: 10/27/21 11:33 Print Language: Azeri
[2021-10-27] MEDS: Acetaminophen 325 MG TABLET 650 MG PO (11:19)
== END 2021-10-27 11:33 | disposition home or self-care (01) ==
PROVIDERS: Emergency Provider Emergency Medicine Emergency Medical Services
DX: S92.901A Unspecified fracture of right foot, initial encounter for closed fracture (principal); Y29.XXXA Contact with blunt object, undetermined intent, initial encounter; Y93.9 Activity, unspecified; Y92.9 Unspecified place or not applicable; Y99.9 Unspecified external cause status; Z79.899 Other long term (current) drug therapy; F17.200 Nicotine dependence, unspecified, uncomplicated; Z71.6 Tobacco abuse counseling
CPT/HCPCS: 29515; 73630; 99283; 99284

== ENCOUNTER 2021-11-17 07:26 | Outpatient (REF) | payer MEDICARE, MEDICAID, SELFPAY ==
--- NOTE | ~2021-11-17 | XR_ITS ---
EXAMINATION: XR FOOT, RIGHT CLINICAL INFORMATION: Displaced fracture of the fifth metatarsal bone. COMPARISON: Radiographs dated 10/27/2021 and 06/21/2021. TECHNIQUE: AP, lateral, and oblique views of the right foot. FINDINGS: Bony alignment and mineralization are normal. No fracture or dislocation is seen. Alignment is anatomic. Joint spaces are maintained. 2 approximately 1 mm radiopaque densities are seen within the soft tissues of the right great toe and within the distal forefoot plantar soft tissues. XR/XR foot RT min 3V IMPRESSION: 1. No fracture, dislocation or unusual degenerative change is seen. 2. Tiny radiopaque foreign bodies are noted, as detailed.
== END 2021-11-17 07:27 | disposition home or self-care (01) ==
LOC: HO.HOSX 07:26
PROVIDERS: Visit Provider Physician Assistant
DX: S92.351A Displaced fracture of fifth metatarsal bone, right foot, initial encounter for closed fracture (principal); S90.31XA Contusion of right foot, initial encounter
CPT/HCPCS: 73630; 99202

== ENCOUNTER 2022-08-11 19:42 | Emergency (ER) | payer MEDICARE, MEDICAID, SELFPAY ==
--- NOTE | ~2022-08-11 | CT_ITS ---
EXAMINATION: CT HEAD WITHOUT CONTRAST CLINICAL INFORMATION: 36-year-old male with headache COMPARISON: None available. TECHNIQUE: Contiguous axial imaging was performed from the skull base to vertex without intravenous administration of contrast. This CT examination was performed using dose optimization techniques as appropriate, variously including the following: *Automated exposure control *Adjustment of mA and/or kV according to patient size (this includes techniques or standardized protocols for targeted exams where dose is matched to indication/reason for exam; i.e. extremities or head) *Use of iterative reconstruction technique DLP: 603 mGy-cm FINDINGS: There is no evidence of acute intracranial hemorrhage or territorial infarction. No abnormal mass effect or midline shift is seen. Call to white matter differentiation is well preserved. No extra-axial fluid collections are identified. No hydrocephalus. No significant volume loss. There is no abnormal attenuation within the brain parenchyma. The osseous structures and soft tissues are normal. The mastoid air cells and visualized portions of the paranasal sinuses are well aerated. CT/CT head/brain wo IV con IMPRESSION: No acute intracranial pathology.
[2022-08-11 19:55] VITALS: BP 135/96; PULSE 76; RESP 16; TEMP 36.6; O2SAT 98; BMI 23.1
--- NOTE | 2022-08-11 19:58 | ED.GENADULT ---
HPI - General Adult General Chief complaint: Headache <MOISES Kim - Last Filed: 08/11/22 19:59> Stated complaint: Migraines all week <MOISES Kim - Last Filed: 08/11/22 19:59> Time Seen by Provider: 08/11/22 21:03 <MOISES Kim - Last Filed: 08/11/22 19:59> Source: patient <Constanza Santamaria MD - Last Filed: 08/11/22 22:08> Mode of arrival: ambulatory <Constanza Santamaria MD - Last Filed: 08/11/22 22:08> History of Present Illness HPI narrative: 36-year-old male who presents with no history of headaches but has been battling a left-sided headache for the past week without aura or visual changes, patient states that the pain has been able to be alleviated by Excedrin migraine but continues to return he denies any speech/auditory/visual disturbances and denies any unilateral numbness/tingling/weakness. Patient does states that today it became more severe than usual with eye tearing as well as rhinorrhea and facial flushing. <Constanza Santamaria MD - Last Filed: 08/11/22 22:08> Related Data Home medications: Previous Rx's Medication Instructions Recorded acetaminophen 500 mg tablet 1,000 mg PO QID PRN fever or pain 12/04/20 (Tylenol Extra Strength) #14 tabs amoxicillin 875 mg-potassium 1 tab PO BID 10 days #20 tabs 12/04/20 clavulanate 125 mg tablet (Augmentin) lorazepam 1 mg tablet (Ativan) 1 mg PO TID PRN anxiety #10 tabs 12/04/20 ondansetron HCl 4 mg tablet 4 mg PO Q8H PRN nausea and 12/04/20 (Zofran) vomiting #14 tabs oxycodone-acetaminophen 5 mg-325 1 tab PO TID PRN pain 3 days #9 06/20/ mg tablet (Percocet) tabs ketorolac 10 mg tablet 10 mg PO Q6H PRN pain 5 days #20 08/11/22 tabs <MOISES Kim - Last Filed: 08/11/22 19:59> Allergies/adverse reactions: Allergies Allergy/AdvReac Type Severity Reaction Status Date / Time No Known Allergies Allergy Verified 08/11/22 20:00 [No Known Allergies*] <MOISES Kim - Last Filed: 08/11/22 19:59> Review of Systems Review of Systems: Pertinent positives and negatives as stated in HPI <Constanza Santamaria MD - Last Filed: 08/11/22 22:08> PMFSH Past Medical History Source: nursing notes reviewed <Constanza Santamaria MD - Last Filed: 08/11/22 22:08> Surgical History: Surgical History H/O hand surgery <MOISES Kim - Last Filed: 08/11/22 19:59> Social History Social History: Social History Alcohol intake: never Patient Tobacco Use Status: Current someday Tobacco user Smoked in Last 30 Days: No Use of substances other than those prescribed or required for medical reasons: No Substance Use Type: Marijuana Advance Directives: No Advance Directives Information Provided: No <MOISES Kim - Last Filed: 08/11/22 19:59> Physical Exam ED Vital Signs: Vital Signs - 24 hr 08/11/22 19:55 Temperature 97.8 F Pulse Rate 76 Respiratory Rate 16 Blood Pressure 135/96 H Pulse Oximetry 98 Oxygen Delivery Method Room Air BMI result Body Mass Index 23.1 <MOISES Kim - Last Filed: 08/11/22 19:59> Vital Signs - 24 hr 08/11/22 19:55 Temperature 97.8 F Pulse Rate 76 Respiratory Rate 16 Blood Pressure 135/96 H Pulse Oximetry 98 Oxygen Delivery Method Room Air BMI result Body Mass Index 23.1 VITAL SIGNS: Reviewed. GENERAL: Well developed, well nourished, in no acute distress. HEAD: Normocephalic/atraumatic EYES: PERRLA, EOMI EARS: Ext canals without abnormality LUNGS: Normal breath sounds. No adventitious sounds or accessory muscle use. SpO2<98> CARDIOVASCULAR: Regular rate and rhythm without noted murmurs ABDOMEN: Soft, non-tender, non-distended with bowel sounds. MUSCULOSKELETAL: No tenderness, deformities, or effusions noted on gross inspection. EXTREMITIES: No cyanosis, clubbing or edema. SKIN: Inspection of the skin reveals no rashes NEUROLOGIC: Alert and oriented x 4. Strength and sensation to light touch were grossly intact x 4, no facial asymmetry, no pronator drift, cranial nerves 2-12 are grossly intact, heel to lowery and past pointing are intact.. <Constanza Santamaria MD - Last Filed: 08/11/22 22:08> Course Course Course Narrative: RME performed by Piper Cole PA-C. Patient is a 36 year old assigned male at presenting to the emergency department with a migraine. Labs, imaging, and swab ordered. Patient placed back in the waiting room pending room availability and results. <MOISES Kim - Last Filed: 08/11/22 19:59> Medications Administered Discontinued Medications Generic Name Dose Route Start Last Admin Trade Name Freq PRN Reason Stop Dose Admin Acetaminophen 975 mg 08/11/22 21:33 08/11/22 21:40 Acetaminophen 325 Mg Tablet PO 08/11/22 21:34 975 mg ONCE ONE Administration Ketorolac Tromethamine 15 mg 08/11/22 21:33 08/11/22 21:40 Ketorolac Tromethamine 15 Mg/Ml Vial IM 08/11/22 21:34 15 mg ONCE ONE Administration <MOISES Kim - Last Filed: 08/11/22 19:59> Medications Administered Discontinued Medications Generic Name Dose Route Start Last Admin Trade Name Freq PRN Reason Stop Dose Admin Acetaminophen 975 mg 08/11/22 21:33 08/11/22 21:40 Acetaminophen 325 Mg Tablet PO 08/11/22 21:34 975 mg ONCE ONE Administration Ketorolac Tromethamine 15 mg 08/11/22 21:33 08/11/22 21:40 Ketorolac Tromethamine 15 Mg/Ml Vial IM 08/11/22 21:34 15 mg ONCE ONE Administration <Constanza Santamaria MD - Last Filed: 08/11/22 22:08> Medical Decision Making Medical Decision Making MDM Narrative: This is a 36-year-old male with history and clinical presentation most consistent with cluster headaches. I reviewed all investigations and my interpretation is cluster headaches. Patient received high-dose Tylenol, IV Toradol, as well as Fioricet x1. On re-evaluation is feeling much better will be discharged home on Toradol for the next 1-2 days. He denies any medication allergies. There are no focal deficits. <Constanza Santamaria MD - Last Filed: 08/11/22 22:08> Differential Diagnosis Please see the discussion above <Constanza Santamaria MD - Last Filed: 08/11/22 22:08> Lab Data Please see the discussion above <Constanza Santamaria MD - Last Filed: 08/11/22 22:08> Result Diagrams: 08/11/22 20:28 08/11/22 20:28 <MOISES Kim - Last Filed: 08/11/22 19:59> Labs: Lab Results 08/11/22 08/11/22 08/11/22 Range/Units 20:28 20:28 20:28 WBC 11.2 H (4.8-10.8) X10*3/uL RBC 5.35 (4.60-5.80) X10*6/uL Hgb 14.8 (14.0-18.0) g/dl Hct 44.4 (42.0-52.0) % MCV 83.0 (80.0-98.0) fL MCH 27.7 (27.0-33.0) pg MCHC 33.3 (31.0-36.0) g/dl RDW 11.9 (11.0-16.0) % Plt Count 214 (160-400) X10*3/uL MPV 12.1 (9.4-12.4) fL Immature Gran % (Auto) 0.3 (0.0-0.4) % Neut % (Auto) 69.1 (45-73) % Lymph % (Auto) 23.4 (20-40) % Morrow % (Auto) 5.9 (2-11) % Eos % (Auto) 1.1 (0-4) % Baso % (Auto) 0.2 (0-2) % Lymph # (Auto) 2.6 (1.2-4.9) X10*3/uL Morrow # (Auto) 0.7 (0.1-1.2) X10*3/uL Eos # (Auto) 0.1 (0.0-0.4) X10*3/uL Baso # (Auto) 0.0 (0.0-0.2) X10*3/uL Abs Immat Gran (auto) 0.03 (0.00-0.03) X10*3/uL Absolute Neuts (auto) 7.7 (2.0-8.3) x10*3/uL Absolute Nucleated RBC 0.000 (0.0-0.012) X10*3/uL Nucleated RBC % (auto) 0.0 (0.0-0.2) /100WBC Sodium 143 (135-145) mmol/L Potassium 4.0 (3.3-5.1) mmol/L Chloride 105 (96-108) mmol/L Carbon Dioxide 26 (22-29) mmol/L Anion Gap 16 (12-20) BUN 9 (9-16) mg/dL Creatinine 0.95 (0.5-1.4) mg/dL Estim Creat Clear Calc 125.1 Estimated GFR > 60 Random Glucose 89 (60-115) mg/dL Calcium 9.6 (8.4-10.2) mg/dL Magnesium 2.1 (1.6-2.6) mg/dL Total Bilirubin 0.7 (0.0-1.0) mg/dL AST 26 (5-37) U/L ALT 29 (0-40) U/L Alkaline Phosphatase 80 (39-117) U/L Total Protein 7.0 (6.5-8.0) g/dL Albumin 4.6 (3.5-5.0) g/dL COVID-19 ([facility]) Negative (Negative) COVID-19 Clin Com See Note <MOISES Kim - Last Filed: 08/11/22 19:59> Lab Results 08/11/22 08/11/22 08/11/22 Range/Units 20:28 20:28 20:28 WBC 11.2 H (4.8-10.8) X10*3/uL RBC 5.35 (4.60-5.80) X10*6/uL Hgb 14.8 (14.0-18.0) g/dl Hct 44.4 (42.0-52.0) % MCV 83.0 (80.0-98.0) fL MCH 27.7 (27.0-33.0) pg MCHC 33.3 (31.0-36.0) g/dl RDW 11.9 (11.0-16.0) % Plt Count 214 (160-400) X10*3/uL MPV 12.1 (9.4-12.4) fL Immature Gran % (Auto) 0.3 (0.0-0.4) % Neut % (Auto) 69.1 (45-73) % Lymph % (Auto) 23.4 (20-40) % Morrow % (Auto) 5.9 (2-11) % Eos % (Auto) 1.1 (0-4) % Baso % (Auto) 0.2 (0-2) % Lymph # (Auto) 2.6 (1.2-4.9) X10*3/uL Morrow # (Auto) 0.7 (0.1-1.2) X10*3/uL Eos # (Auto) 0.1 (0.0-0.4) X10*3/uL Baso # (Auto) 0.0 (0.0-0.2) X10*3/uL Abs Immat Gran (auto) 0.03 (0.00-0.03) X10*3/uL Absolute Neuts (auto) 7.7 (2.0-8.3) x10*3/uL Absolute Nucleated RBC 0.000 (0.0-0.012) X10*3/uL Nucleated RBC % (auto) 0.0 (0.0-0.2) /100WBC Sodium 143 (135-145) mmol/L Potassium 4.0 (3.3-5.1) mmol/L Chloride 105 (96-108) mmol/L Carbon Dioxide 26 (22-29) mmol/L Anion Gap 16 (12-20) BUN 9 (9-16) mg/dL Creatinine 0.95 (0.5-1.4) mg/dL Estim Creat Clear Calc 125.1 Estimated GFR > 60 Random Glucose 89 (60-115) mg/dL Calcium 9.6 (8.4-10.2) mg/dL Magnesium 2.1 (1.6-2.6) mg/dL Total Bilirubin 0.7 (0.0-1.0) mg/dL AST 26 (5-37) U/L ALT 29 (0-40) U/L Alkaline Phosphatase 80 (39-117) U/L Total Protein 7.0 (6.5-8.0) g/dL Albumin 4.6 (3.5-5.0) g/dL COVID-19 ([facility]) Negative (Negative) COVID-19 Clin Com See Note <Constanza Santamaria MD - Last Filed: 08/11/22 22:08> Radiology Impression Radiologist Impression: My interpretation is in agreement with radiology's impression of the imaging studies <Constanza Santamaria MD - Last Filed: 08/11/22 22:08> External Record Review External record reviewed: Prior outpatient labs <Constanza Santamaria MD - Last Filed: 08/11/22 22:08> Discharge Plan Discharge Clinical Impression: Cluster headache <MOISES Kim - Last Filed: 08/11/22 19:59> Patient Disposition: Home, Self-Care <MOISES Kim - Last Filed: 08/11/22 19:59> Instructions: Cluster Headache (ED) <MOISES Kim - Last Filed: 08/11/22 19:59> Additional Instructions: 1. Tylenol 1000 mg, orally, every 6 hours as needed for pain control. Do not exceed 4000 mg within 24 hours. 2. Increase the amount of water that you are drinking. 3. Please follow-up with primary care provider by calling the office on Saturday. Return to the ER for any worsening symptoms. <MOISES Kim - Last Filed: 08/11/22 19:59> Prescriptions: New ketorolac 10 mg tablet 10 mg PO Q6H PRN (Reason: pain) 5 Days Qty: 20 0RF Rx Instructions: Patient received Toradol in the emergency room. Discontinued ibuprofen 800 mg tablet 800 mg PO Q8H PRN (Reason: pain) Qty: 14 0RF naproxen 500 mg tablet 500 mg PO BID PRN (Reason: pain) 10 Days Qty: 20 0RF No Action ondansetron HCl [Zofran] 4 mg tablet 4 mg PO Q8H PRN (Reason: nausea and vomiting) Qty: 14 0RF lorazepam [Ativan] 1 mg tablet 1 mg PO TID PRN (Reason: anxiety) Qty: 10 0RF amoxicillin-pot clavulanate [Augmentin] 875-125 mg tablet 1 tab PO BID 10 Days Qty: 20 0RF acetaminophen [Tylenol Extra Strength] 500 mg tablet 1,000 mg PO QID PRN (Reason: fever or pain) Qty: 14 0RF oxycodone-acetaminophen [Percocet] 5-325 mg tablet 1 tab PO TID PRN (Reason: pain) 3 Days Qty: 9 0RF Rx Instructions: side effect is drowsiness. Do not take at work or while driving. <MOISES Kim - Last Filed: 08/11/22 19:59>
[2022-08-11 20:34] LABS: MANUAL DIFF FLAG NO
[2022-08-11 20:42] LABS: Basophils Percent Auto 0.2 % (0-2); Eosinophils Absolute Auto 0.1 X10*3/uL (0.0-0.4); Eosinophils Percent Auto 1.1 % (0-4); Hematocrit 44.4 % (42.0-52.0); Hemoglobin 14.8 g/dl (14.0-18.0); Imm Gran Abs Auto 0.03 X10*3/uL (0.00-0.03); Imm Gran Pct Auto 0.3 % (0.0-0.4); Lymphocytes Absolute Auto 2.6 X10*3/uL (1.2-4.9); Lymphocytes Percent Auto 23.4 % (20-40); Mean Corpuscular HGB Conc 33.3 g/dl (31.0-36.0); Mean Corpuscular Hemoglobin 27.7 pg (27.0-33.0); Mean Platelet Volume 12.1 fL (9.4-12.4); Monocytes Absolute Auto 0.7 X10*3/uL (0.1-1.2); Monocytes Percent Auto 5.9 % (2-11); Neutrophils Absolute Auto 7.7 x10*3/uL (2.0-8.3); Neutrophils Percent Auto 69.1 % (45-73); Platelet Count 214 X10*3/uL (160-400); Red Blood Count 5.35 X10*6/uL (4.60-5.80); Red Cell Distribution Width 11.9 % (11.0-16.0); White Blood Count 11.2 X10*3/uL (4.8-10.8)
[2022-08-11 20:50] LABS: IDNOW Serial# 08D9AD1C
[2022-08-11 20:51] LABS: COVID-19 Test Negative (Negative)
[2022-08-11 20:56] LABS: Alanine Aminotransferase 29 U/L (0-40); Albumin Level 4.6 g/dL (3.5-5.0); Alkaline Phosphatase 80 U/L (39-117); Anion Gap 16 (12-20); Aspartate Amino Transferase 26 U/L (5-37); Bilirubin Total 0.7 mg/dL (0.0-1.0); Blood Urea Nitrogen 9 mg/dL (9-16); Calcium 9.6 mg/dL (8.4-10.2); Carbon Dioxide 26 mmol/L (22-29); Chloride 105 mmol/L (96-108); Creatinine Clr Calc Pharmacy 125.1; Estimated Glomerular Filt Rate > 60; Glucose Random 89 mg/dL (60-115); Magnesium 2.1 mg/dL (1.6-2.6); Sodium 143 mmol/L (135-145)
[2022-08-11] MEDS: Acetaminophen 325 MG TABLET 975 MG PO (21:40)
[2022-08-11] MEDS: Ketorolac Tromethamine 15 MG/ML VIAL IM (21:40)
== END 2022-08-11 22:15 | disposition home or self-care (01) ==
PROVIDERS: Physician Assistant Medical; Emergency Provider Student in an Organized Health Care Education/Training Program
DX: G44.009 Cluster headache syndrome, unspecified, not intractable (principal); Z20.822 Contact with and (suspected) exposure to COVID-19; F17.210 Nicotine dependence, cigarettes, uncomplicated; F12.90 Cannabis use, unspecified, uncomplicated; Z79.899 Other long term (current) drug therapy
CPT/HCPCS: 70450; 80053; 83735; 85025; 87635; 96372; 99284; J1885

== ENCOUNTER 2023-07-11 15:05 | Emergency (ER) | payer MEDICARE, MEDICAID, SELFPAY ==
--- NOTE | ~2023-07-11 | CT_ITS ---
EXAMINATION: CT ABDOMEN AND PELVIS WITH CONTRAST CLINICAL INFORMATION: Right upper quadrant/epigastric pain COMPARISON: CT abdomen and pelvis 12/04/2020 TECHNIQUE: Multidetector volumetric images were obtained from the superior aspect of the liver through the pubic symphysis following administration 85 mL of Omnipaque 350 intravenous contrast. Sagittal and coronal reformatted images were obtained on the technologist's workstation. Oral contrast: No This CT examination was performed using dose optimization techniques as appropriate, variously including the following: *Automated exposure control *Adjustment of mA and/or kV according to patient size (this includes techniques or standardized protocols for targeted exams where dose is matched to indication/reason for exam; i.e. extremities or head) *Use of iterative reconstruction technique DLP: 409 mGy-cm FINDINGS: LUNG BASES: The lung bases are clear. LIVER, GALLBLADDER, AND BILIARY TREE: The liver is normal in size, shape, and diffusely attenuated. No focal hepatic lesion or biliary ductal dilatation is present. The gallbladder is unremarkable with no evidence of radiopaque gallstones, gallbladder wall thickening, or obvious pericholecystic inflammatory changes. PANCREAS: Unremarkable. SPLEEN: Unremarkable. ADRENAL GLANDS: Unremarkable. KIDNEYS AND URETERS: The kidneys are normal in size, shape, and attenuation. No hydronephrosis, hydroureter, or calculi seen. No perinephric stranding. BLADDER: Unremarkable. GASTROINTESTINAL TRACT: There is scattered stool and gas seen throughout the colon without any distention. The small bowel loops are normal caliber. Appendix is not visualized no free air or free fluid seen.. ABDOMINAL WALL: LYMPH NODES: Normal. VASCULAR: Unremarkable. PELVIC VISCERA: Unremarkable. OSSEOUS STRUCTURES: Mild degenerative disc changes with vacuum disc phenomena L5/S1 disc level with ventral and posterior spondylosis is noted. CT/CT abdomen pelvis w IV con IMPRESSION: 1. No acute intra-abdominal process seen. 2. Mild constipation. 3. No major change from previous exam 12/04/2020 Fleischner guidelines were followed.
--- NOTE | ~2023-07-11 | XR_ITS ---
EXAMINATION: XR CHEST CLINICAL INFORMATION: The free air in the right hemidiaphragm. COMPARISON: None available. TECHNIQUE: Frontal view of the chest was obtained. FINDINGS: No significant abnormality is noted involving the heart, lungs, mediastinum, bony thorax or soft tissues. XR/XR chest 1V IMPRESSION: Unremarkable chest examination.
--- NOTE | 2023-07-11 15:08 | ECG_ITS ---
Test Reason : CHEST PAIN Blood Pressure : / mmHG Vent. Rate : 101 BPM Atrial Rate : 104 BPM P-R Int : 100 ms QRS Dur : 068 ms QT Int : 302 ms P-R-T Axes : 079 067 050 degrees QTc Int : 391 ms Undetermined rhythm Junctional ST depression, probably normal Borderline ECG When compared with ECG of 30-NOV-2014 06:36, Current undetermined rhythm precludes rhythm comparison, needs review Referred By: Bridget Robb Electronically Signed By:Dante Cifuentes
--- NOTE | 2023-07-11 15:15 | ED.GENADULT ---
HPI - General Adult General Chief complaint: Abdominal Pain Stated complaint: pain ,diff. breathing Time Seen by Provider: 07/11/23 15:23 Source: patient Mode of arrival: ambulatory Limitations: no limitations History of Present Illness HPI narrative: Patient comes to the emergency room complaining of abdominal pain that started earlier this morning. Patient states that today he started taking ibuprofen for toothache. Patient states that yesterday he was started on antibiotics as well for a tooth infection/tooth extraction. Patient states that he has not eaten anything today due to the pain. Patient denies drinking alcohol or using drugs. Patient states that he feels an intense burning sensation in the epigastric area radiating towards the chest. Related Data Previous Rx's Medication Instructions Recorded acetaminophen 500 mg tablet 1,000 mg (2 x 500 mg) PO QID PRN 12/04/20 (Tylenol Extra Strength) fever or pain #14 tabs amoxicillin 875 mg-potassium 1 tab PO BID 10 days #20 tabs 12/04/20 clavulanate 125 mg tablet (Augmentin) lorazepam 1 mg tablet (Ativan) 1 mg PO TID PRN anxiety #10 tabs 12/04/20 ondansetron HCl 4 mg tablet 4 mg PO Q8H PRN nausea and 12/04/20 (Zofran) vomiting #14 tabs oxycodone-acetaminophen 5 mg-325 1 tab PO TID PRN pain 3 days #9 06/20/ mg tablet (Percocet) tabs ketorolac 10 mg tablet 10 mg PO Q6H PRN pain 5 days #20 08/11/22 tabs omeprazole 20 mg capsule,delayed 20 mg PO DAILY #30 caps 07/11/23 release ondansetron HCl 4 mg tablet 4 mg PO Q6H PRN nausea and 07/11/23 vomiting #10 tabs Allergies Allergy/AdvReac Type Severity Reaction Status Date / Time No Known Allergies Allergy Verified 08/11/22 20:00 [No Known Allergies*] Review of Systems Review of Systems: Constitutional : No Weight loss, No Fever, No Chills, No Night Sweats, No Fatigue, No Malaise ENT/Mouth : No Hearing loss, No Ear Pain, No Nasal Congestion, No Sinus Pain, No Hoarseness, No sore throat, No Rhinorrhea, No Swallowing Difficulty Eyes: No Eye Pain, No Swelling, No Redness, No Foreign Body, No Discharge, No Vision Changes Cardiovascular : No Chest Pain, No SOB, No Dyspnea on Exertion, No Orthopnea, No Edema, No Palpitations Respiratory : No Cough, No Sputum, No Wheezing, No Smoke Exposure, No Dyspnea Gastrointestinal : Complaining of nausea/vomiting, complaining of epigastric and right upper quadrant pain. Genitourinary : no irregular bleeding, No Dysuria, No Urinary Frequency, No Hematuria, No Urinary Incontinence, No Urgency, No Flank Pain, No Urinary Flow Changes, No Hesitancy Musculoskeletal : No joint pain, No Myalgias, No Joint Swelling Skin : No Skin Lesions, No rash Neuro : No Weakness, No Numbness, No Paresthesias, No Loss of Consciousness, No Dizziness, No Headache Psych : No Anxiety/Panic, No Depression, No SI/HI/AH/VH, No Social Issues, Heme/Lymph: No Bruising, No Bleeding,No Lymphadenopathy Endocrine : No Polyuria, No Polydipsia, No Temperature Intolerance [facility] Past Medical History Surgical History H/O hand surgery Social History Social History Alcohol intake: never Patient Tobacco Use Status: Current someday Tobacco user Smoked in Last 30 Days: Yes Use of substances other than those prescribed or required for medical reasons: Yes Substance Use Type: Marijuana Advance Directives: No Advance Directives Information Provided: No Physical Exam ED Vital Signs: Vital Signs - 24 hr 07/11/23 15:26 07/11/23 15:30 07/11/23 16:11 Temperature 96.9 F 98.1 F Pulse Rate 93 93 92 Respiratory Rate 28 H 20 30 H Blood Pressure 135/65 135/65 118/79 Pulse Oximetry 100 100 100 Oxygen Delivery Method Room Air Room Air Room Air BMI result Body Mass Index 21.0 Const Other: Appearance: Alert. Oriented X3. Seems uncomfortable Eyes: Pupils equal, round and reactive to light. ENT: Pharynx normal. Neck: Normal inspection. Neck supple. No lymph nodes noted. No crepitus CVS: Normal heart rate and rhythm. Pulses normal. Normal S1 and S2 Respiratory: No respiratory distress. Breath sounds normal. No Wheezing. No rales Abdomen: Soft, tenderness to palpation in epigastric and right upper quadrant, patient guarding Skin: Skin warm and dry. Normal skin color. Normal skin turgor. Extremities: No lower extremity edema. No Lacerations. No Rash Neuro: Oriented X 3. No motor deficit. No sensory deficit. Moving all extremities. No slurred speech. CN 2 through 12 grossly intact Psych: calm, cooperative, Course Course Course Narrative: This is a rapid medical exam: Additional HPI, ROS, PE not included below will be deferred to primary provider. Patient is a 37-year-old male presenting to the emergency department with complaint of chest pain, shortness of breath, tingling to extremities. Arrives hyperventilating. Brought directly for EKG. Patient's SO reports he had 4 teeth extracted yesterday, was started on antibiotics. Patient states pain began as epigastric this morning, he vomited, then the pain moved to his chest. Plan: EKG, labs, CXR Medications Administered Discontinued Medications Generic Name Dose Route Start Last Admin Trade Name Freq PRN Reason Stop Dose Admin Famotidine 20 mg 07/11/23 15:37 07/11/23 15:52 Famotidine/Pf 20 Mg/2 Ml Vial IVPUSH 07/11/23 15:38 20 mg ONCE ONE Administration Sodium Chloride 1,000 mls @ 999 mls/hr 07/11/23 15:46 07/11/23 18:08 Ns IVCONT 07/11/23 16:46 Infused .Q1H1M ONE Infusion Iohexol 100 ml 07/11/23 16:32 07/11/23 16:32 Iohexol 350 Mg/Ml 100 Ml Infus..Btl IV 07/11/23 16:33 85 ml ONCE ONE Administration Morphine Sulfate 4 mg 07/11/23 15:37 07/11/23 15:48 Morphine Sulfate 4 Mg/Ml Cartridge IVPUSH 07/11/23 15:38 4 mg ONCE ONE Administration Protocol Medical Decision Making Medical Decision Making [facility] Narrative: -my interpretation of labs: Patient's troponin 12.1, no signs of infection, chemistry within normal limits, troponin 51.1, elevated. -My interpretation of chest x-ray: No free air under the diaphragm -my interpretation of CT scan, no obvious abnormality. No SBO, no free air -patient was given medications for GERD, patient states that he feels much better. -I discussed with the patient that his 1st troponin was elevated, we do not have prior troponins to compare this to. Patient denies cocaine use. I discussed with the patient that we should be getting a 2nd troponin 3 hours from the time that we ordered the 1st troponin. Patient refuses to get more blood work done. Patient was made aware that this could be ACS, a severe cardiac problem. Patient states that he is asymptomatic and would like to be discharged home. I discussed with the patient that the medication that we gave him may be masking the symptoms. Patient still refused to get blood work to check a troponin a 2nd time, patient declined 2nd EKG -also, patient did not want to wait for a urinalysis/U tox Differential Diagnosis Differential Diagnoses: The differential diagnosis associated with the presentation includes (SBO, ulcer perforation, gastritis, substance abuse, ACS) Admission/Observation Consideration of admission/observation: Escalation of care including admission/observation considered (Given patient's presentation symptoms and labs, admission was considered. But patient refused any further workup or admission) Lab Data MDM Lab Attestation statement: I reviewed the patient's lab results. 07/11/23 15:41 07/11/23 15:41 Labs: Lab Results 07/11/23 07/11/23 Range/Units 15:41 15:41 WBC 12.1 H (4.8-10.8) X10*3/uL RBC 5.16 (4.60-5.80) X10*6/uL Hgb 14.4 (14.0-18.0) g/dl Hct 41.5 L (42.0-52.0) % MCV 80.4 (80.0-98.0) fL MCH 27.9 (27.0-33.0) pg MCHC 34.7 (31.0-36.0) g/dl RDW 12.0 (11.0-16.0) % Plt Count 256 (160-400) X10*3/uL MPV 11.7 (9.4-12.4) fL Immature Gran % (Auto) 0.4 (0.0-0.4) % Neut % (Auto) 77.9 H (45-73) % Lymph % (Auto) 13.2 L (20-40) % [place] % (Auto) 8.1 (2-11) % Eos % (Auto) 0.2 (0-4) % Baso % (Auto) 0.2 (0-2) % Lymph # (Auto) 1.6 (1.2-4.9) X10*3/uL [place] # (Auto) 1.0 (0.1-1.2) X10*3/uL Eos # (Auto) 0.0 (0.0-0.4) X10*3/uL Baso # (Auto) 0.0 (0.0-0.2) X10*3/uL Abs Immat Gran (auto) 0.05 H (0.00-0.03) X10*3/uL Absolute Neuts (auto) 9.4 H (2.0-8.3) x10*3/uL Absolute Nucleated RBC 0.000 (0.0-0.012) X10*3/uL Nucleated RBC % (auto) 0.0 (0.0-0.2) /100WBC PT 12.3 (11.1-13.3) SEC INR 1.0 (0.9-1.1) Sodium 141 (135-145) mmol/L Potassium 3.7 (3.3-5.1) mmol/L Chloride 103 (96-108) mmol/L Carbon Dioxide 22 (22-29) mmol/L Anion Gap 20 (12-20) BUN 14 (9-16) mg/dL Creatinine 1.13 (0.5-1.4) mg/dL Estim Creat Clear Calc 94.4 Estimated GFR > 60 Random Glucose 90 (60-115) mg/dL Calcium 10.6 H D (8.4-10.2) mg/dL Total Bilirubin 0.8 (0.0-1.0) mg/dL AST 29 (5-37) U/L ALT 28 (0-40) U/L Alkaline Phosphatase 99 (39-117) U/L Troponin I High Sens 51.1 H (<3.5-35.0) ng/L Total Protein 7.9 (6.5-8.0) g/dL Albumin 4.7 (3.5-5.0) g/dL Lipase 16 (8-78) U/L Ethyl Alcohol < 10 Cancelled mg/dL Influenza Type A (PCR) NEGATIVE (Negative) Influenza Type B (PCR) NEGATIVE (Negative) RSV RNA Qual (PCR) NEGATIVE (Negative) SARS-CoV-2 RNA (RT-PCR) NEGATIVE (Negative) Independent Interpretation I performed an independent interpretation of an: EKG (My interpretation of EKG, sinus rhythm, heart rate 101, no ST segment depression or elevation, QTC 391. EKG difficult to interpret due to interference. Patient shaking) and CT Scan Radiology Impression Discussion of test interpretation with radiology: I have reviewed the radiologist's reading. Radiologist Impression: FINDINGS: LUNG BASES: The lung bases are clear. LIVER, GALLBLADDER, AND BILIARY TREE: The liver is normal in size, shape, and diffusely attenuated. No focal hepatic lesion or biliary ductal dilatation is present. The gallbladder is unremarkable with no evidence of radiopaque gallstones, gallbladder wall thickening, or obvious pericholecystic inflammatory changes. PANCREAS: Unremarkable. SPLEEN: Unremarkable. ADRENAL GLANDS: Unremarkable. KIDNEYS AND URETERS: The kidneys are normal in size, shape, and attenuation. No hydronephrosis, hydroureter, or calculi seen. No perinephric stranding. BLADDER: Unremarkable. GASTROINTESTINAL TRACT: There is scattered stool and gas seen throughout the colon without any distention. The small bowel loops are normal caliber. Appendix is not visualized no free air or free fluid seen.. ABDOMINAL WALL: LYMPH NODES: Normal. VASCULAR: Unremarkable. PELVIC VISCERA: Unremarkable. OSSEOUS STRUCTURES: Mild degenerative disc changes with vacuum disc phenomena L5/S1 disc level with ventral and posterior spondylosis is noted. CT/CT abdomen pelvis w IV con IMPRESSION: 1. No acute intra-abdominal process seen. 2. Mild constipation. 3. No major change from previous exam 12/04/2020 Fleischner guidelines were followed. Critical Care Time Critical Care Time Critical Care Time: Yes Total Critical Care Time: 60 Attestation: I have personally provided critical care time. Time includes review of lab data, radiology results, discussion with consultants, and monitoring for potential decompensation. Intervention performed as documented. Discharge Plan Discharge Clinical Impression: Abdominal pain, Peptic ulcer disease, Elevated troponin Patient Disposition: Left Against Medical Advice Instructions: Peptic Ulcer (ED), Diet for Stomach Ulcers and Gastritis (ED), Abdominal Pain (ED) Additional Instructions: Please follow-up with your primary care physician tomorrow. If you have any worsening or new symptoms, please return to the emergency room or call 911 Prescriptions: New omeprazole 20 mg capsule,delayed release(DR/EC) 20 mg PO DAILY Qty: 30 2RF ondansetron HCl 4 mg tablet 4 mg PO Q6H PRN (Reason: nausea and vomiting) Qty: 10 0RF No Action ondansetron HCl [Zofran] 4 mg tablet 4 mg PO Q8H PRN (Reason: nausea and vomiting) Qty: 14 0RF lorazepam [Ativan] 1 mg tablet 1 mg PO TID PRN (Reason: anxiety) Qty: 10 0RF amoxicillin-pot clavulanate [Augmentin] 875-125 mg tablet 1 tab PO BID 10 Days Qty: 20 0RF acetaminophen [Tylenol Extra Strength] 500 mg tablet 1,000 mg PO QID PRN (Reason: fever or pain) Qty: 14 0RF oxycodone-acetaminophen [Percocet] 5-325 mg tablet 1 tab PO TID PRN (Reason: pain) 3 Days Qty: 9 0RF Rx Instructions: side effect is drowsiness. Do not take at work or while driving. ketorolac 10 mg tablet 10 mg PO Q6H PRN (Reason: pain) 5 Days Qty: 20 0RF Rx Instructions: Patient received Toradol in the emergency room.
[2023-07-11 15:26] VITALS: BP 135/65; PULSE 93; RESP 28; TEMP 36.1; O2SAT 100; BMI 22.2
[2023-07-11 15:30] VITALS: BP 135/65; PULSE 93; RESP 20; TEMP 36.7; O2SAT 100; BMI 21.0
[2023-07-11 15:47] LABS: MANUAL DIFF FLAG NO
[2023-07-11 15:48] LABS: Basophils Percent Auto 0.2 % (0-2); Eosinophils Percent Auto 0.2 % (0-4); Hematocrit 41.5 % (42.0-52.0); Hemoglobin 14.4 g/dl (14.0-18.0); Imm Gran Abs Auto 0.05 X10*3/uL (0.00-0.03); Imm Gran Pct Auto 0.4 % (0.0-0.4); Lymphocytes Absolute Auto 1.6 X10*3/uL (1.2-4.9); Lymphocytes Percent Auto 13.2 % (20-40); Mean Corpuscular HGB Conc 34.7 g/dl (31.0-36.0); Mean Corpuscular Hemoglobin 27.9 pg (27.0-33.0); Mean Corpuscular Volume 80.4 fL (80.0-98.0); Mean Platelet Volume 11.7 fL (9.4-12.4); Monocytes Percent Auto 8.1 % (2-11); Neutrophils Absolute Auto 9.4 x10*3/uL (2.0-8.3); Neutrophils Percent Auto 77.9 % (45-73); Platelet Count 256 X10*3/uL (160-400); Red Blood Count 5.16 X10*6/uL (4.60-5.80); White Blood Count 12.1 X10*3/uL (4.8-10.8)
[2023-07-11] MEDS: Morphine Sulfate 4 MG/ML CARTRIDGE IVPUSH (15:48)
[2023-07-11] MEDS: Famotidine/PF 20 MG/2 ML VIAL IVPUSH (15:52)
[2023-07-11 15:53] LABS: Prothrombin Time 12.3 SEC (11.1-13.3)
[2023-07-11 15:59] LABS: Lipase 16 U/L (8-78)
[2023-07-11 16:06] LABS: Anion Gap 20 (12-20)
[2023-07-11 16:09] LABS: Troponin-I High Sensitivity 51.1 ng/L (<3.5-35.0)
[2023-07-11 16:10] LABS: Alanine Aminotransferase 28 U/L (0-40); Albumin Level 4.7 g/dL (3.5-5.0); Alkaline Phosphatase 99 U/L (39-117); Aspartate Amino Transferase 29 U/L (5-37); Bilirubin Total 0.8 mg/dL (0.0-1.0); Blood Urea Nitrogen 14 mg/dL (9-16); Calcium 10.6 mg/dL (8.4-10.2); Carbon Dioxide 22 mmol/L (22-29); Chloride 103 mmol/L (96-108); Creatinine Clr Calc Pharmacy 94.4; Estimated Glomerular Filt Rate > 60; Ethanol < 10 mg/dL; Glucose Random 90 mg/dL (60-115); Potassium 3.7 mmol/L (3.3-5.1); Sodium 141 mmol/L (135-145); Total Protein 7.9 g/dL (6.5-8.0)
[2023-07-11 16:11] VITALS: BP 118/79; PULSE 92; RESP 30; O2SAT 100
[2023-07-11] MEDS: 0.9 % Sodium Chloride 1,000 ML 999 ML IVCONT (16:13)
[2023-07-11 16:31] LABS: Influenza A PCR NEGATIVE (Negative); Influenza B PCR NEGATIVE (Negative); Resp Syncy Virus RNA Qual PCR NEGATIVE (Negative); SARS COV2 PCR INHOUSE NEGATIVE (Negative)
[2023-07-11] MEDS: iohexoL 350 MG/ML 100 ML INFUS..BTL IV (16:32)
--- NOTE | 2023-07-11 18:38 | MHC.EDTECH ---
t/w went into patients room to obtain lab work. Pt refused stating hes not getting stuck again. Asked for water and wants to leave. ENDY hall.
[2023-07-11 18:53] LABS: Appearance Urine Clear; Color Urine Yellow; Glucose Urine UA Negative (Negative); Leukocyte Esterase Urine Negative (Negative); Nitrite Urine Negative (Negative); PH 5.5 (5.0-9.0); Specific Gravity - Urine >= 1.030 (1.005-1.025); Urine Blood Negative (Negative); Urine Ketones >=160 mg/dL (Negative); Urine Protein Trace mg/dL (Neg-Trace)
[2023-07-11 19:06] LABS: Amphetamine Screen Urine Not Detected (Not Detect); Barbiturates, Urine Not Detected (Not Detect); Benzodiazepines Screen Urine POSITIVE (Not Detect); Cannabinoid Screen Urine POSITIVE (Not Detect); Cocaine Screen Urine Not Detected (Not Detect); Fentanyl, urine POSITIVE (Not Detect); Opiate Screen Urine POSITIVE (Not Detect); Phencyclidine Screen Urine Not Detected (Not Detect)
== END 2023-07-11 19:15 | disposition left against medical advice (07) ==
PROVIDERS: Registered Nurse Emergency; Emergency Provider Emergency Medicine
DX: R10.13 Epigastric pain (principal); R10.11 Right upper quadrant pain; K27.9 Peptic ulcer, site unspecified, unspecified as acute or chronic, without hemorrhage or perforation; R79.89 Other specified abnormal findings of blood chemistry; Z11.52 Encounter for screening for COVID-19; Z20.828 Contact with and (suspected) exposure to other viral communicable diseases; R07.9 Chest pain, unspecified; R11.2 Nausea with vomiting, unspecified; R06.02 Shortness of breath; F17.200 Nicotine dependence, unspecified, uncomplicated; Z79.899 Other long term (current) drug therapy; Z53.29 Procedure and treatment not carried out because of patient's decision for other reasons
CPT/HCPCS: 0241U; 36415; 71045; 74177; 80053; 80307; 81003; 83690; 84484; 85025; 85610; 93005; 96361; 96374; 96375; 99284; 99285; J2270; Q9967

== ENCOUNTER → 2023-07-11 15:08 | Outpatient (BNV) | payer MEDICARE, MEDICAID, SELFPAY | PROVIDERS: Emergency Provider Emergency Medicine; Visit Provider Internal Medicine Cardiovascular Disease | DX: R07.9 Chest pain, unspecified (principal) | CPT/HCPCS: 93010 ==

== ENCOUNTER 2023-09-04 16:21 | Emergency (ER) | payer MEDICARE, MEDICAID, SELFPAY ==
--- NOTE | ~2023-09-04 | US_ITS ---
EXAMINATION: US ABDOMEN LIMITED CLINICAL INFORMATION: Right upper quadrant pain. COMPARISON: CT abdomen and pelvis dated 09/10/2023. TECHNIQUE: Real-time imaging of the right upper quadrant abdominal viscera. FINDINGS: PANCREAS: Normal. The visualized pancreatic head and body are normal in appearance. The remainder of the pancreas is obscured from visualization by the overlying bowel gas. LIVER: There is borderline hepatomegaly, with a longitudinal span of 17.1 cm. The liver contour is normal. Parenchymal echogenicity is increased. No focal hepatic lesion. There is no intrahepatic biliary duct dilatation seen. GALLBLADDER: Normal. The gallbladder is physiologically distended without evidence of stones, sludge, polyps, wall thickening or pericholecystic fluid. COMMON BILE DUCT: Normal in caliber measuring 0.2 cm in diameter. RIGHT KIDNEY: Normal. No hydronephrosis. No renal calculi or focal parenchymal lesions. The kidney measures 10.5 cm in maximum dimension. FREE FLUID: None. US/US abdomen limited IMPRESSION: 1. There is borderline hepatomegaly. 2. There is generalized increase in hepatic echotexture, consistent with fatty infiltration or hepatocellular disease. Please correlate clinically. No focal hepatic mass or intrahepatic biliary dilatation is seen. 3. Technically limited ultrasound examination of the pancreas.
--- NOTE | 2023-09-04 16:32 | ECG_ITS ---
Test Reason : SYNCOPE Blood Pressure : / mmHG Vent. Rate : 070 BPM Atrial Rate : 070 BPM P-R Int : 200 ms QRS Dur : 090 ms QT Int : 366 ms P-R-T Axes : 076 044 037 degrees QTc Int : 395 ms Normal sinus rhythm Normal ECG When compared with ECG of 11-JUL-2023 15:08, No significant changes seen Referred By: Mendy Clayton Electronically Signed By:MILA ALLISON
[2023-09-04 16:34] VITALS: BP 131/86; BP 133/88; PULSE 82; PULSE 90; RESP 18; TEMP 36.7; O2SAT 100; O2SAT 99; BMI 22.7
--- NOTE | 2023-09-04 17:26 | ED_ITS ---
HPI - Abdominal Pain General Chief Complaint: Abdominal Pain Stated Complaint: syncope/ abd pain Time Seen by Provider: 09/04/23 16:31 Source: patient Mode of arrival: EMS Limitations: no limitations History of Present Illness HPI narrative: Patient is a 37-year-old male who presents emergency department via EMS for evaluation. He reports that he awoke this morning with pain surrounding his umbilicus. He went to work and the pain persisted throughout the day. He reports that he got home around 15:00 and he felt as though the pain was worsening. He reports that it suddenly radiated up the center of his chest described as a sharp stabbing pain, which ultimately caused him to syncopized and fall down the stairs. He reports that he fell down the entire flight, and by his family's account he had lost consciousness ?for a few minutes?. He awoke to them throwing water on him. He did not recall what had happened. He expressed at that time that he continued to have the abdominal pain in a diffuse pain to the left anterior chest. When asked, he states he has had a similar episode of this occurring approximately 1 month ago, and states he came to this emergency department it was recommended that he be admitted to the hospital for further evaluation of his heart but he ultimately decided to leave against medical advice. He states he has been taking an antacid medication prescribed from here since then and has no further episodes of this pain until today. He denies any drug or alcohol consumption. He reports last night he ate macaroni and cheese with chicken at approximately 18:00. He denies any dizziness, lightheadedness, vision changes, neck pain, head pain, current chest pain, shortness of breath, nausea, vomiting, genitourinary symptoms, numbness or tingling of his extremities. Related Data Previous Rx's ?Medication ?Instructions ?Recorded acetaminophen 500 mg tablet 1,000 mg (2 x 500 mg) PO QID PRN 12/04/20 (Tylenol Extra Strength) fever or pain #14 tabs amoxicillin 875 mg-potassium 1 tab PO BID 10 days #20 tabs 12/04/20 clavulanate 125 mg tablet (Augmentin) lorazepam 1 mg tablet (Ativan) 1 mg PO TID PRN anxiety #10 tabs 12/04/20 ondansetron HCl 4 mg tablet 4 mg PO Q8H PRN nausea and 12/04/20 (Zofran) vomiting #14 tabs oxycodone-acetaminophen 5 mg-325 1 tab PO TID PRN pain 3 days #9 06/20/ mg tablet (Percocet) tabs ketorolac 10 mg tablet 10 mg PO Q6H PRN pain 5 days #20 08/11/22 tabs omeprazole 20 mg capsule,delayed 20 mg PO DAILY #30 caps 07/11/23 release ondansetron HCl 4 mg tablet 4 mg PO Q6H PRN nausea and 07/11/23 vomiting #10 tabs Allergies Allergy/AdvReac Type Severity Reaction Status Date / Time No Known Allergies Allergy Verified 09/04/23 16:36 [No Known Allergies*] Review of Systems Review of Systems Yes all other systems are reviewed and are negative [facility] Past Medical History Attestation statement: The following information was validated with the patient. Source: old records reviewed Surgical History H/O hand surgery Social History Social History Alcohol intake: never Patient Tobacco Use Status: Current someday Tobacco user Substance Use Type: Marijuana Advance Directives: No Advance Directives Information Provided: No Physical Exam ED Vital Signs: Vital Signs - 24 hr 09/04/23 16:34 09/04/23 18:29 09/04/23 18:32 Temperature 98.1 F Pulse Rate 82 72 75 Respiratory Rate 18 16 Blood Pressure 133/88 121/74 123/69 Pulse Oximetry 99 99 Oxygen Delivery Method Room Air Room Air 09/04/23 18:32 09/04/23 18:34 Temperature Pulse Rate 79 78 Respiratory Rate Blood Pressure 136/85 131/89 Pulse Oximetry Oxygen Delivery Method BMI result Body Mass Index 22.7 Appearance: Alert.?Oriented to person, place and time. No acute distress.?Normal affect. Eyes: Pupils equal, round and reactive to light.? ENT: Pharynx normal.?? Neck: Normal inspection.? Neck supple.?? CVS: Heart sounds normal. Normal heart rate and rhythm.? Pulses normal.?? Respiratory: No respiratory distress.? Lung sounds clear to auscultation bilaterally?? Abdomen: Soft with right upper and mid upper quadrant tenderness upon palpation. Normoactive bowel sounds. No pulsatile mass.?? Skin: Skin warm and dry.? Normal skin color.? .?? Extremities: No lower extremity edema.? No calf ttp? Neuro: Moves all extremities spontaneously. Sensation intact bilaterally. CN II- XII intact. No focal neuro deficits. Ambulates with normal steady gait. Course Reevaluation(s) Reevaluation #1: CBC is without leukocytosis, mild normocytic anemia, no thrombocytopenia. No electrolyte derangement. No BETINA. Magnesium within normal range. lipase within normal range. High sensitive troponin below detectable limits, given history of elevated troponin, and onset of symptoms will obtain delta troponin to exclude ACS. No orthostatic hypotension. Reevaluation #2: Delta troponin flat, nondetectable, unlikely ACS. Abdominal ultrasound with borderline hepatomegaly, likely hepatic steatosis, unremarkable gallbladder, less likely to emesis/cholecystitis. Received GI cocktail with improvement in his pain. However did expressed him concern for experiencing severe chest pain preceding this syncopal episode. I recommended that he remain in the hospital for further evaluation and treatment he however declines., can not completely exclude potential arrhythmias or life-threatening condition, he verbalizes understanding of this and continues to wish to leave against medical advice. He states he will follow-up with his primary care provider or return if he is feeling worse. Time: 20:25 Medical Decision Making Medical Decision Making MDM Narrative: Patient is a 37-year-old male who presents emergency department for evaluation of abdominal pain with radiation into the chest and subsequent syncopal episode as per HPI. Upon review of his chart he was seen in the emergency department 07/11/2023 for evaluation of abdominal pain, at that time he had an elevated troponin at 51.1, without prior for comparison, he declined having additional EKG or repeat troponin at that time and left against medical advice, he was provided with a prescription for omeprazole 10 mg extended release which she reports has been compliant with, he had a CT was abdomen and pelvis then without acute intra-abdominal process, more notably no evidence of aneurysm, some mild constipation was noted, atraumatic bilateral shoulder unremarkable hepatobiliary/pancreas. On exam he does have tenderness upon palpation over the epigastric/right upper quadrant. He has no focal neurological deficits, speaking clear full sentences, ambulatory with a steady gait, suspect less likely to have ICH, SDH, fracture, would defer CT imaging of the head at this time.. Will obtain CBC to evaluate for leukocytosis/ anemia, CMP and lipase to evaluate for abnormal electrolytes /abnormal renal function/ abnormal hepatic/biliary function, EKG and troponin to evaluate for ischemia/ACS. Chest x-ray to evaluate for consolidation/ infiltrate/ mass/ pulmonary congestion and Urinalysis. Differential Diagnosis Differential Diagnoses: The differential diagnosis associated with the presentation includes (Gastritis, PUD, ulcer perforation, SBO, ACS, vasovagal syncope) Admission/Observation Consideration of admission/observation: Escalation of care including admission/observation considered (See narrative above and course narrative for further detail) Lab Data MDM Lab Attestation statement: I reviewed the patient's lab results. (See course narrative) 09/04/23 17:21 09/04/23 17:21 Labs: Lab Results 09/04/23 09/04/23 09/04/23 Range/Units 17:21 18:40 19:36 WBC 9.5 (4.8-10.8) X10*3/uL RBC 4.71 (4.60-5.80) X10*6/uL Hgb 13.3 L (14.0-18.0) g/dl Hct 39.8 L (42.0-52.0) % MCV 84.5 (80.0-98.0) fL MCH 28.2 (27.0-33.0) pg MCHC 33.4 (31.0-36.0) g/dl RDW 12.0 (11.0-16.0) % Plt Count 180 D (160-400) X10*3/uL MPV 11.8 (9.4-12.4) fL Immature Gran % (Auto) 0.4 (0.0-0.4) % Neut % (Auto) 73.8 H (45-73) % Lymph % (Auto) 16.8 L (20-40) % [place] % (Auto) 8.4 (2-11) % Eos % (Auto) 0.5 (0-4) % Baso % (Auto) 0.1 (0-2) % Lymph # (Auto) 1.6 (1.2-4.9) X10*3/uL [place] # (Auto) 0.8 (0.1-1.2) X10*3/uL Eos # (Auto) 0.1 (0.0-0.4) X10*3/uL Baso # (Auto) 0.0 (0.0-0.2) X10*3/uL Abs Immat Gran (auto) 0.04 H (0.00-0.03) X10*3/uL Absolute Neuts (auto) 7.0 (2.0-8.3) x10*3/uL Absolute Nucleated RBC 0.000 (0.0-0.012) X10*3/uL Nucleated RBC % (auto) 0.0 (0.0-0.2) /100WBC PT 11.2 (11.1-13.3) SEC INR 0.9 (0.9-1.1) Sodium 142 (135-145) mmol/L Potassium 3.6 (3.3-5.1) mmol/L Chloride 109 H (96-108) mmol/L Carbon Dioxide 25 (22-29) mmol/L Anion Gap 12 (12-20) BUN 13 (9-16) mg/dL Creatinine 1.03 (0.5-1.4) mg/dL Estim Creat Clear Calc 112.0 Estimated GFR > 60 Random Glucose 98 (60-115) mg/dL Calcium 9.0 D (8.4-10.2) mg/dL Magnesium 1.8 (1.6-2.6) mg/dL Total Bilirubin 0.4 (0.0-1.0) mg/dL AST 22 (5-37) U/L ALT 27 (0-40) U/L Alkaline Phosphatase 80 (39-117) U/L Troponin I High Sens < 2.7 D < 2.7 (<3.5-35.0) ng/L Total Protein 6.9 (6.5-8.0) g/dL Albumin 4.3 (3.5-5.0) g/dL Lipase 40 (8-78) U/L Urine Color Yellow Urine Appearance Clear Urine pH 7.0 (5.0-9.0) Ur Specific [place] 1.015 (1.005-1.025) Urine Protein Negative (Neg-Trace) mg/dL Urine Glucose (UA) Negative (Negative) mg/dL Urine Ketones Negative (Negative) mg/dL Urine Blood Negative (Negative) Urine Nitrite Negative (Negative) Ur Leukocyte Esterase Negative (Negative) Influenza Type A (PCR) NEGATIVE (Negative) Influenza Type B (PCR) NEGATIVE (Negative) RSV RNA Qual (PCR) NEGATIVE (Negative) SARS-CoV-2 RNA (RT-PCR) NEGATIVE (Negative) Independent Interpretation I performed an independent interpretation of an: EKG Interpretation: Rate: 70 Rhythm:? Normal sinus rhythm Normal P waves.? Normal MEAGAN.?? Normal QRS complex.?? ST T wave :??No ST elevation, no ST depression, no T-wave inversion qTC: 395 prior studies:? July 2023 The study has been interpreted contemporaneously by me. Radiology Impression Discussion of test interpretation with radiology: I have reviewed the radiologist's reading. Radiologist Impression: US/US abdomen limited IMPRESSION: 1. There is borderline hepatomegaly. 2. There is generalized increase in hepatic echotexture, consistent with fatty infiltration or hepatocellular disease. Please correlate clinically. No focal hepatic mass or intrahepatic biliary dilatation is seen. 3. Technically limited ultrasound examination of the pancreas. Tests considered The following testing was considered but not selected: See narrative above Medications Administered Discontinued Medications Generic Name Dose Route Start Last Admin Trade Name Freq PRN Reason Stop Dose Admin Al Hydroxide/Mg Hydroxide 30 ml 09/04/23 17:34 09/04/23 17:47 Magnesium Hydrox/Alum Hydrox 30 Ml Oral.Susp PO 09/04/23 17:35 30 ml ONCE ONE Administration Famotidine 20 mg 09/04/23 17:34 09/04/23 17:47 Famotidine 20 Mg Tablet PO 09/04/23 17:35 20 mg ONCE ONE Administration Sodium Chloride 1,000 mls @ 999 mls/hr 09/04/23 17:45 09/04/23 17:47 Ns IV 09/04/23 18:45 999 mls/hr .Q1H1M JOE Administration Lidocaine HCl 15 ml 09/04/23 17:34 09/04/23 17:47 Lidocaine Hcl Viscous 2 % 15 Ml Solution MUCOUS MEM 09/04/23 17:35 15 ml ONCE ONE Administration Discharge Plan Discharge Clinical Impression: Syncope, Abdominal pain Patient Disposition: Left Against Medical Advice Additional Instructions: It was recommended that you remain in the hospital for further evaluation and treatment. At this time you have declined hospital admission and requesting to go home. Please return back to emergency department with any new or worsening symptoms or concerns. Prescriptions: No Action ondansetron HCl [Zofran] 4 mg tablet 4 mg PO Q8H PRN (Reason: nausea and vomiting) Qty: 14 0RF lorazepam [Ativan] 1 mg tablet 1 mg PO TID PRN (Reason: anxiety) Qty: 10 0RF amoxicillin-pot clavulanate [Augmentin] 875-125 mg tablet 1 tab PO BID 10 Days Qty: 20 0RF acetaminophen [Tylenol Extra Strength] 500 mg tablet 1,000 mg PO QID PRN (Reason: fever or pain) Qty: 14 0RF oxycodone-acetaminophen [Percocet] 5-325 mg tablet 1 tab PO TID PRN (Reason: pain) 3 Days Qty: 9 0RF Rx Instructions: side effect is drowsiness. Do not take at work or while driving. omeprazole 20 mg capsule,delayed release(DR/EC) 20 mg PO DAILY Qty: 30 2RF ondansetron HCl 4 mg tablet 4 mg PO Q6H PRN (Reason: nausea and vomiting) Qty: 10 0RF ketorolac 10 mg tablet 10 mg PO Q6H PRN (Reason: pain) 5 Days Qty: 20 0RF Rx Instructions: Patient received Toradol in the emergency room. Stand Alone Forms: Against Medical Advice Print Language: Swiss
[2023-09-04 17:27] LABS: MANUAL DIFF FLAG NO
[2023-09-04 17:30] LABS: Basophils Percent Auto 0.1 % (0-2); Eosinophils Absolute Auto 0.1 X10*3/uL (0.0-0.4); Eosinophils Percent Auto 0.5 % (0-4); Hematocrit 39.8 % (42.0-52.0); Hemoglobin 13.3 g/dl (14.0-18.0); Imm Gran Abs Auto 0.04 X10*3/uL (0.00-0.03); Imm Gran Pct Auto 0.4 % (0.0-0.4); Lymphocytes Absolute Auto 1.6 X10*3/uL (1.2-4.9); Lymphocytes Percent Auto 16.8 % (20-40); Mean Corpuscular HGB Conc 33.4 g/dl (31.0-36.0); Mean Corpuscular Hemoglobin 28.2 pg (27.0-33.0); Mean Corpuscular Volume 84.5 fL (80.0-98.0); Mean Platelet Volume 11.8 fL (9.4-12.4); Monocytes Absolute Auto 0.8 X10*3/uL (0.1-1.2); Monocytes Percent Auto 8.4 % (2-11); Neutrophils Percent Auto 73.8 % (45-73); Platelet Count 180 X10*3/uL (160-400); Red Blood Count 4.71 X10*6/uL (4.60-5.80); White Blood Count 9.5 X10*3/uL (4.8-10.8)
[2023-09-04 17:38] LABS: INTERNATIONAL NORM RATIO 0.9 (0.9-1.1); Prothrombin Time 11.2 SEC (11.1-13.3)
[2023-09-04 17:43] LABS: Alanine Aminotransferase 27 U/L (0-40); Albumin Level 4.3 g/dL (3.5-5.0); Alkaline Phosphatase 80 U/L (39-117); Anion Gap 12 (12-20); Aspartate Amino Transferase 22 U/L (5-37); Bilirubin Total 0.4 mg/dL (0.0-1.0); Blood Urea Nitrogen 13 mg/dL (9-16); Carbon Dioxide 25 mmol/L (22-29); Chloride 109 mmol/L (96-108); Estimated Glomerular Filt Rate > 60; Glucose Random 98 mg/dL (60-115); Lipase 40 U/L (8-78); Magnesium 1.8 mg/dL (1.6-2.6); Potassium 3.6 mmol/L (3.3-5.1); Sodium 142 mmol/L (135-145); Total Protein 6.9 g/dL (6.5-8.0)
[2023-09-04] MEDS: 0.9 % Sodium Chloride 1,000 ML 999 ML IV (17:47)
[2023-09-04] MEDS: Magnesium Hydrox/Alum Hydrox 30 ML ORAL.SUSP PO (17:47)
[2023-09-04] MEDS: Lidocaine HCl Viscous 2 % 15 ML SOLUTION MUCOUS MEM (17:47)
[2023-09-04] MEDS: Famotidine 20 MG TABLET PO (17:47)
[2023-09-04 17:52] LABS: Troponin-I High Sensitivity < 2.7 ng/L (<3.5-35.0)
[2023-09-04 18:10] LABS: Influenza A PCR NEGATIVE (Negative); Influenza B PCR NEGATIVE (Negative); Resp Syncy Virus RNA Qual PCR NEGATIVE (Negative); SARS COV2 PCR INHOUSE NEGATIVE (Negative)
[2023-09-04 18:29] VITALS: BP 121/74; PULSE 72; RESP 16; O2SAT 99
[2023-09-04 18:32] VITALS: BP 123/69; BP 136/85; PULSE 75; PULSE 79
[2023-09-04 18:34] VITALS: BP 131/89; PULSE 78
[2023-09-04 18:59] LABS: Appearance Urine Clear; Color Urine Yellow; Glucose Urine UA Negative (Negative); Leukocyte Esterase Urine Negative (Negative); Nitrite Urine Negative (Negative); Specific Gravity - Urine 1.015 (1.005-1.025); Urine Blood Negative (Negative); Urine Ketones Negative (Negative); Urine Protein Negative (Neg-Trace)
[2023-09-04 20:10] LABS: Troponin-I High Sensitivity < 2.7 ng/L (<3.5-35.0)
[2023-09-04 20:55] VITALS: BP 132/90; PULSE 69; RESP 20; O2SAT 99
[2023-09-04 21:08] VITALS: BP 132/90; PULSE 69; RESP 20; TEMP -17.7; TEMP 0; O2SAT 99
== END 2023-09-04 21:09 | disposition left against medical advice (07) ==
PROVIDERS: Nurse Practitioner Family; Emergency Provider Emergency Medicine
DX: R55 Syncope and collapse (principal); R10.13 Epigastric pain; R10.10 Upper abdominal pain, unspecified; Z03.818 Encounter for observation for suspected exposure to other biological agents ruled out; Z53.29 Procedure and treatment not carried out because of patient's decision for other reasons; G40.909 Epilepsy, unspecified, not intractable, without status epilepticus; F17.200 Nicotine dependence, unspecified, uncomplicated; F12.90 Cannabis use, unspecified, uncomplicated; Z79.899 Other long term (current) drug therapy
CPT/HCPCS: 0241U; 36415; 76705; 80053; 81003; 83690; 83735; 84484; 85025; 85610; 93005; 96360; 96361; 99284

== ENCOUNTER → 2023-09-04 16:32 | Outpatient (BNV) | payer MEDICARE, MEDICAID, SELFPAY | PROVIDERS: Emergency Provider Emergency Medicine; Visit Provider Internal Medicine | DX: R55 Syncope and collapse (principal) | CPT/HCPCS: 93010 ==

== ENCOUNTER 2024-05-05 13:03 | Outpatient (REF) | payer MEDICAID, SELFPAY ==
--- NOTE | ~2024-05-05 | XR_ITS ---
EXAMINATION: XR WRIST 3 OR MORE VIEWS LEFT HISTORY: M25.532 - Pain in left wrist COMPARISON: Comparison is made with the prior examination dated 04/14/2024. FINDINGS: Three views of the left wrist are submitted. Osseous mineralization is normal. The previously seen nondisplaced fracture of the radial styloid is less well visualized, consistent with healing. The patient is status post internal fixation of the 4th and 5th metacarpals with sideplates and multiple orthopedic screws. The joint spaces are preserved. The soft tissues are unremarkable. XR/XR wrist LT min 3V IMPRESSION: Healing nondisplaced fracture of the radial styloid. Electronically signed by: Cipriano Campoverde MD 05/13/2024 07:47 AM MAIRA
== END 2024-05-05 13:04 | disposition home or self-care (01) ==
LOC: HO.HOSX 13:03
PROVIDERS: Visit Provider Orthopaedic Surgery
DX: M25.532 Pain in left wrist (principal); S52.502D Unspecified fracture of the lower end of left radius, subsequent encounter for closed fracture with routine healing
CPT/HCPCS: 73110; 99212

== ENCOUNTER 2024-07-02 20:56 | Emergency (ER) | payer MEDICARE, MEDICAID, SELFPAY ==
[2024-07-02 21:19] VITALS: BP 119/77; PULSE 76; RESP 16; TEMP 36.9; O2SAT 97; BMI 22.0
[2024-07-02 21:42] LABS: MANUAL DIFF FLAG NO
[2024-07-02 21:46] LABS: Appearance Urine Clear; Basophils Percent Auto 0.4 % (0-2); Color Urine Yellow; Eosinophils Absolute Auto 0.1 X10*3/uL (0.0-0.4); Glucose Urine UA Negative (Negative); Hematocrit 39.9 % (42.0-52.0); Hemoglobin 13.2 g/dl (14.0-18.0); Imm Gran Abs Auto 0.02 X10*3/uL (0.00-0.03); Imm Gran Pct Auto 0.3 % (0.0-0.4); Leukocyte Esterase Urine Negative (Negative); Lymphocytes Absolute Auto 1.9 X10*3/uL (1.2-4.9); Lymphocytes Percent Auto 24.9 % (20-40); Mean Corpuscular HGB Conc 33.1 g/dl (31.0-36.0); Mean Corpuscular Hemoglobin 27.8 pg (27.0-33.0); Mean Platelet Volume 11.6 fL (9.4-12.4); Monocytes Absolute Auto 0.7 X10*3/uL (0.1-1.2); Monocytes Percent Auto 8.7 % (2-11); Neutrophils Percent Auto 64.7 % (45-73); Nitrite Urine Negative (Negative); PH 6.5 (5.0-9.0); Platelet Count 221 X10*3/uL (160-400); Red Blood Count 4.75 X10*6/uL (4.60-5.80); Red Cell Distribution Width 12.3 % (11.0-16.0); Specific Gravity - Urine >= 1.030 (1.005-1.025); UMIC TRIGGER UACC YES; Urine Blood Moderate (2+) (Negative); Urine Ketones Trace mg/dL (Negative); Urine Protein Negative (Neg-Trace); White Blood Count 7.7 X10*3/uL (4.8-10.8)
[2024-07-02 21:56] LABS: Anion Gap 11 (12-20); Blood Urea Nitrogen 10 mg/dL (9-16); Calcium 9.3 mg/dL (8.4-10.2); Carbon Dioxide 25 mmol/L (22-29); Chloride 112 mmol/L (96-108); Creatinine Clr Calc Pharmacy 118.2; Estimated Glomerular Filt Rate > 60; Glucose Random 97 mg/dL (60-115); Potassium 3.6 mmol/L (3.3-5.1); Sodium 144 mmol/L (135-145)
[2024-07-02 22:06] LABS: Bacteria Urine None Seen (None Seen); Hyaline Casts Urine 0-2 /LPF (0-2); Squamous Epithelial Cell Urine 0-2 /HPF (0-2); UACC Culture Trigger YES
[2024-07-02 23:16] LABS: CT PCR NOT DETECTED (Not Detect.); NG PCR NOT DETECTED (Not Detect.)
== END 2024-07-02 23:31 | disposition left against medical advice (07) ==
PROVIDERS: Emergency Medicine; Emergency Provider Emergency Medicine
DX: R31.9 Hematuria, unspecified (principal)
CPT/HCPCS: 36415; 80048; 81001; 81003; 85025; 87086; 87491; 87591; 99281; 99282

== ENCOUNTER 2024-07-21 15:38 | Emergency (ER) | payer MEDICARE, MEDICAID, SELFPAY ==
--- NOTE | ~2024-07-21 | XR_ITS ---
EXAMINATION: XR HAND, LEFT CLINICAL INFORMATION: painj, trauma COMPARISON: Left wrist 05/05/2024 TECHNIQUE: PA, lateral, and oblique views of the left hand. FINDINGS: There are healed fractures with dorsal plate and screws left proximal/mid fourth and fifth metacarpals. There is an oblique distal fifth metacarpal fracture with volar angulation. No additional bony abnormality seen. The adjacent joints are normal. There is mild soft tissue swelling along the dorsal fifth finger. XR/XR hand LT min 3V IMPRESSION: Boxer's fracture distal fifth metacarpal. There are old healed fracture stabilized with dorsal plate and screws mid fourth and fifth metacarpals. Electronically signed by: Richard Centeno MD 07/21/2024 04:18 PM EDT
[2024-07-21 15:44] VITALS: BP 121/77; PULSE 80; RESP 20; TEMP 37.1; O2SAT 100; BMI 22.2
--- NOTE | 2024-07-21 15:49 | ED.EXTPRO ---
HPI - Extremity Problem General Chief complaint: Extremity Injury, Upper Stated complaint: L hand injury Time Seen by Provider: 07/21/24 18:30 Source: patient Mode of arrival: ambulatory Limitations: no limitations History of Present Illness ED Provider: ARTI MARIO Narrative: 38 yo male L hand dominant s/p recent L wrist fracture as well as prior fractures to 4th and 5th metacarpals s/p NEOS ORIF he reports he was fixing his motor and it moved fast it snapped his L 5th finger back then over time he noted swelling and pain MD Complaint: joint pain Onset (ago): hour(s) (few) Pain Consistency: constant Location: left and upper extremity (hand) Quality: aching Radiation: distal Relieving factors: immobilization Exacerbating factors: range of motion Associated symptoms: denies other symptoms Context: other (direct trauma) Related Data Previous Rx's ?Medication ?Instructions ?Recorded acetaminophen 500 mg tablet 1,000 mg (2 x 500 mg) PO QID PRN 12/04/20 (Tylenol Extra Strength) fever or pain #14 tabs amoxicillin 875 mg-potassium 1 tab PO BID 10 days #20 tabs 12/04/20 clavulanate 125 mg tablet (Augmentin) lorazepam 1 mg tablet (Ativan) 1 mg PO TID PRN anxiety #10 tabs 12/04/20 ondansetron HCl 4 mg tablet 4 mg PO Q8H PRN nausea and 12/04/20 (Zofran) vomiting #14 tabs oxycodone-acetaminophen 5 mg-325 1 tab PO TID PRN pain 3 days #9 06/20/ mg tablet (Percocet) tabs ketorolac 10 mg tablet 10 mg PO Q6H PRN pain 5 days #20 08/11/22 tabs omeprazole 20 mg capsule,delayed 20 mg PO DAILY #30 caps 07/11/23 release ondansetron HCl 4 mg tablet 4 mg PO Q6H PRN nausea and 07/11/23 vomiting #10 tabs acetaminophen 500 mg tablet 500 mg PO Q6H PRN pain #30 tabs 04/08/24 (Tylenol Extra Strength) ibuprofen 600 mg tablet 600 mg PO Q6H PRN pain #30 tabs 04/08/24 oxycodone 5 mg tablet 5 mg PO Q6H PRN pain #7 tabs 04/08/24 ibuprofen 600 mg tablet 600 mg PO Q6H PRN pain #30 tabs 07/21/24 morphine 15 mg immediate release 15 mg PO Q6H PRN pain #12 tabs 07/21/24 tablet Allergies Allergy/AdvReac Type Severity Reaction Status Date / Time No Known Allergies Allergy Verified 07/21/24 15:47 [No Known Allergies*] Review of Systems Review of Systems: Constitutional : No Fever, No Chills ENT/Mouth : No Ear Pain, No Hoarseness, No sore throat Eyes: No Eye Pain, No Swelling, No Redness, No Foreign Body Cardiovascular : No Chest Pain, No SOB Respiratory : No Cough, No Dyspnea Gastrointestinal : No Nausea, No Vomiting, No Diarrhea, No abdominal Pain Genitourinary : No Dysuria, No Hematuria Musculoskeletal : positive joint pain, No Myalgias, pos Joint Swelling Skin : No Skin lacerations, No rash Neuro : No Weakness, No Numbness All other systems reviewed and are negative [facility] Past Medical History Attestation statement: The following information was validated with the patient. 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 Oriented X3. No acute distress. Eyes: Pupils equal, round and reactive to light. ENT: Pharynx normal. Neck: Normal inspection. CVS: Pulses normal. Respiratory: No respiratory distress. Abdomen: Soft and non-tender. Skin: Skin warm and dry. Normal skin color. no skin breaks Extremities: No lower extremity edema. L hand contusion 5th metacarpal area with swelling and contusion - distal NV intact BCR in digit he has limited flexion and extension due to pain and cannot fully participate but his L 5th finger has decrease in extension Neuro: Oriented X 3. No motor deficit. No sensory deficit. CN2-12 intact Course Course Course Narrative: This is a rapid medical exam performed by Yolanda Gallardo PA-C. The patient is a 38-year-old male who presents with left hand pain prior to arrival. Patient states he was working on a vehicle, when he felt a sharp pain in the left side of the hand and pinky. On exam, there was some swelling over the dorsum of the lateral aspect of left hand, he does not have full range of motion of the left pinky, we will order an x-ray. Patient was stable and can return to the waiting room pending his full medical assessment. Medications Administered Discontinued Medications Generic Name Dose Route Start Last Admin Trade Name Freq PRN Reason Stop Dose Admin Acetaminophen 975 mg 07/21/24 15:46 07/21/24 15:54 Acetaminophen 325 Mg Tablet PO 07/21/24 15:47 975 mg ONCE ONE Administration Ibuprofen 600 mg 07/21/24 15:46 07/21/24 15:54 Ibuprofen 600 Mg Tablet PO 07/21/24 15:47 600 mg ONCE ONE Administration Medical Decision Making Medical Decision Making MDM Narrative: 38 yo male L hand dominant here with c/o direct trauma to hand and L 5th finger at this time xrays ordered, ulnar gutter and discussed important of close orthopedics follow up Differential Diagnosis Differential Diagnoses: The differential diagnosis associated with the presentation includes fracture, contusion, strain Independent Interpretation I performed an independent interpretation of an: Plain X-Ray (boxer's fracture) Radiology Impression Discussion of test interpretation with radiology: I have reviewed the radiologist's reading. External Record Review External record reviewed: Outpatient record Prescription Management I considered prescription management with: Pain Medication and Other Procedures Orthopedic Splinting/Casting Injury #1: Side: left Upper Extremity Injury Location: hand Upper Extremity Immobilizer: ulnar gutter Additional Comments: NV intact Discharge Plan Discharge Clinical Impression: Boxer's fracture Qualifiers: Encounter type: initial encounter Fracture type: closed Qualified Code(s): S62.339A - Displaced fracture of neck of unspecified metacarpal bone, initial encounter for closed fracture Patient Disposition: Home, Self-Care Instructions: Splint Care (ED), Boxer Fracture (ED) Additional Instructions: return for numbness, weakness, cold blue hand it is important you follow up with our orthopedic team given the fracture but you also have limited movement of your left little finger this could be related to a tendon injury as well - please follow up this week alternate pain medications with tylenol and motrin do not get splint wet keep on until take off by orthopedics team Prescriptions: New ibuprofen 600 mg tablet 600 mg PO Q6H PRN (Reason: pain) Qty: 30 0RF morphine 15 mg tablet 15 mg PO Q6H PRN (Reason: pain) Qty: 12 0RF Rx Instructions: partial fill okay; Partial Fill upon patient request. No Action ondansetron HCl [Zofran] 4 mg tablet 4 mg PO Q8H PRN (Reason: nausea and vomiting) Qty: 14 0RF lorazepam [Ativan] 1 mg tablet 1 mg PO TID PRN (Reason: anxiety) Qty: 10 0RF amoxicillin-pot clavulanate [Augmentin] 875-125 mg tablet 1 tab PO BID 10 Days Qty: 20 0RF acetaminophen [Tylenol Extra Strength] 500 mg tablet 1,000 mg PO QID PRN (Reason: fever or pain) Qty: 14 0RF oxycodone-acetaminophen [Percocet] 5-325 mg tablet 1 tab PO TID PRN (Reason: pain) 3 Days Qty: 9 0RF Rx Instructions: side effect is drowsiness. Do not take at work or while driving. omeprazole 20 mg capsule,delayed release(DR/EC) 20 mg PO DAILY Qty: 30 2RF ondansetron HCl 4 mg tablet 4 mg PO Q6H PRN (Reason: nausea and vomiting) Qty: 10 0RF ketorolac 10 mg tablet 10 mg PO Q6H PRN (Reason: pain) 5 Days Qty: 20 0RF Rx Instructions: Patient received Toradol in the emergency room. oxycodone 5 mg tablet 5 mg PO Q6H PRN (Reason: pain) Qty: 7 0RF Rx Instructions: Partial Fill upon patient request. acetaminophen [Tylenol Extra Strength] 500 mg tablet 500 mg PO Q6H PRN (Reason: pain) Qty: 30 0RF ibuprofen 600 mg tablet 600 mg PO Q6H PRN (Reason: pain) Qty: 30 0RF Referrals: [facility] [place] [facility] [Provider Group] Stand Alone Forms: Work/School Release Print Language: Ecuadorean
[2024-07-21] MEDS: Ibuprofen 600 MG TABLET PO (15:54)
[2024-07-21] MEDS: Acetaminophen 325 MG TABLET 975 MG PO (15:54)
[2024-07-21 19:01] VITALS: BP 121/77; PULSE 80; RESP 20; TEMP 37.1; O2SAT 100
== END 2024-07-21 19:01 | disposition home or self-care (01) ==
PROVIDERS: Emergency Provider Emergency Medicine
DX: M79.642 Pain in left hand (principal); S62.337A Displaced fracture of neck of fifth metacarpal bone, left hand, initial encounter for closed fracture; X58.XXXA Exposure to other specified factors, initial encounter; Y93.89 Activity, other specified; Y92.9 Unspecified place or not applicable; Y99.9 Unspecified external cause status
CPT/HCPCS: 29125; 73130; 99283

== ENCOUNTER → 2024-07-21 15:46 | Outpatient (BNV) | payer MEDICARE, MEDICAID, SELFPAY | PROVIDERS: Visit Provider Radiology Diagnostic Radiology | DX: S62.303D Unspecified fracture of third metacarpal bone, left hand, subsequent encounter for fracture with routine healing (principal) | CPT/HCPCS: 73130 ==

== ENCOUNTER 2024-07-27 08:15 | Outpatient (REF) | payer MEDICARE, MEDICAID, SELFPAY ==
--- NOTE | ~2024-07-27 | XR_ITS ---
EXAMINATION: XR HAND 3 OR MORE VIEWS LEFT HISTORY: M79.642 - Pain in left hand COMPARISON: Comparison is made with the prior examination dated 07/21/2024. FINDINGS: Three views of the left hand are submitted. Osseous mineralization is normal. Again seen is a comminuted fracture of the 5th metacarpal neck with mild volar angulation of the distal fracture fragment. The appearance is not significantly changed from the prior study. Internal fixation of the 4th and 5th metacarpal shafts with plates and multiple orthopedic screws is again seen. The joint spaces are preserved. The soft tissues are unremarkable. XR/XR hand LT min 3V IMPRESSION: Comminuted fracture of the 5th metacarpal neck without change. Electronically signed by: Cipriano Campoverde MD 07/28/2024 11:49 AM EDT
== END 2024-07-27 08:16 | disposition home or self-care (01) ==
LOC: HO.HOSX 08:15
DX: M79.642 Pain in left hand (principal); S62.337A Displaced fracture of neck of fifth metacarpal bone, left hand, initial encounter for closed fracture
CPT/HCPCS: 26600; 73130; 99212

== ENCOUNTER 2024-07-27 11:16 | Outpatient (AMB) | payer MEDICARE, MEDICAID, SELFPAY ==
--- NOTE | 2024-07-27 11:23 | MHC.OFFVIS ---
Vital Signs 07/27/24 11:29 Height 6 ft 3 in Weight 186 lb BMI 23.2 Handedness Left Intake Visit Reasons: ED f/u Left hand, 5th pinky injury DOI 07/21/24 Intake Note: Tani is a 38 year old left hand dominant who presents today for an emergency department follow up for his left hand injury, DOI: 07/21/24. Patient reports he was moving his motor when it fell off the engine hoist stand, landing on his left 5th digit back. He says they did not lift the motor to remove it off his finger instead it was pushed it off his hand. He experienced swelling and pain shortly after. He has bruising on his 3rd, 4th and 5th left digits and some swelling. He expresses a 7 out of 10 on the pain scale. Tylenol and ibuprofen do not offer relief. Hx of Left 5th digit FX ORIF ~ 20 years ago Allergies No Known Allergies [No Known Allergies*] Allergy (Verified 07/27/24 11:29) HPI HPI ED f/u Left hand, 5th pinky injury DOI 07/21/24: Details: Tani is a 38 year old left hand dominant who presents today for an emergency department follow up for his left hand injury, DOI: 07/21/24. Patient reports he was moving his motor when it fell off the engine hoist stand, landing on his left 5th digit back. He says they did not lift the motor to remove it off his finger instead it was pushed it off his hand. He experienced swelling and pain shortly after. He has bruising on his 3rd, 4th and 5th left digits and some swelling. He expresses a 7 out of 10 on the pain scale. Tylenol and ibuprofen do not offer relief. 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 Neuro: Normal sensation of the tips of all digits of the left hand at this time Vascular: Cap refill brisk Pain: Significant tenderness to palpation of the level of the fracture of the left 5th metacarpal neck Significant pain with attempted range of motion of the 5th digit of the left hand ROM: Patient was able to flex and extend the 1st through 3rd digits of the left hand fully and without difficulty Skin: No lacerations or abrasions. General: Significant edema and ecchymosis noted of the ulnar and dorsal aspect of the left hand No erythema or evidence of infection Psych: Appears grossly normal Affect normal Attitude cooperative Office Procedures AMB Fracture Care Details: Left 5th metacarpal neck fracture Fracture Billing Code: Fracture Billing Code Casting/Splints 29487-[id number] Splint Application Procedure code (CPT) selection complete Assessment & Plan Assessment & Plan (1) Displaced fracture of neck of left fifth metacarpal bone: Code(s): S62.337A - Displaced fracture of neck of fifth metacarpal bone, left hand, initial encounter for closed fracture Category: Medical Plan 1. Left 5th metacarpal neck fracture Date of injury 07/21/2024 Patient is educated about this injury Patient is educated about the typical recovery course At this time, patient was informed that no operative intervention is necessary for his fracture, as it would be a very complicated surgery and involve removing the plate on the proximal aspect of the 5th metacarpal Patient was thankful for this is amenable to this plan At this time, patient was placed into a 2 finger ulnar gutter splint as he is still quite swollen and I feel a cast is not advisable Patient is educated on proper splint care and precautions Patient will follow-up one-week with repeat x-rays, anticipate cast placement at that time, sooner with any acute concerns Orders: Orders XR hand LT min 3V Today M79.642 - Pain in left hand Medications: Discontinued oxycodone-acetaminophen 5-325 mg (Percocet) side effect is drowsiness. Do not take at work or while driving. Discontinued Reason: Patient no longer taking 1 tab PO TID 3 days PRN 9 tabs 0RF pain ondansetron HCl Discontinued Reason: Patient no longer taking 4 mg PO Q6H PRN 10 tabs 0RF nausea and vomiting ibuprofen Discontinued Reason: Duplicate 600 mg PO Q6H PRN 30 tabs 0RF pain ketorolac Patient received Toradol in the emergency room. Discontinued Reason: Patient no longer taking 10 mg PO Q6H 5 days PRN 20 tabs 0RF pain omeprazole Discontinued Reason: Patient no longer taking 20 mg PO DAILY 30 caps 2RF oxycodone Partial Fill upon patient request. Discontinued Reason: Patient no longer taking 5 mg PO Q6H PRN 7 tabs 0RF pain morphine partial fill okay; Partial Fill upon patient request. Discontinued Reason: Patient no longer taking 15 mg PO Q6H PRN 12 tabs 0RF pain Coding Level of Care Code Est Pt Level 3 (81272) Diagnoses Displaced fracture of neck of left fifth metacarpal bone S62.337A CPT Codes Fracture Care - Fracture Billing Code: Fracture Billing Code ([id number]) Splint - CPT: 69181-Lblilxt Splint Application ([id number])
[2024-07-27 11:29] VITALS: BMI 23.2
== END 2024-07-27 11:55 | disposition home or self-care (01) ==
LOC: HO.HOS 11:17
DX: S62.337A Displaced fracture of neck of fifth metacarpal bone, left hand, initial encounter for closed fracture (principal)
CPT/HCPCS: 26600; 99214

== ENCOUNTER → 2024-07-27 11:20 | Outpatient (BNV) | payer MEDICARE, MEDICAID, SELFPAY | PROVIDERS: Visit Provider Radiology Diagnostic Radiology | DX: M79.642 Pain in left hand (principal) | CPT/HCPCS: 73130 ==

== ENCOUNTER 2024-08-03 08:54 | Outpatient (REF) | payer MEDICARE, MEDICAID, SELFPAY ==
--- NOTE | ~2024-08-03 | XR_ITS ---
EXAMINATION: XR HAND 3 OR MORE VIEWS LEFT HISTORY: M79.642 - Pain in left hand COMPARISON: Comparison is made with the prior examination dated 07/27/2024. FINDINGS: Three views of the left hand are submitted. Osseous mineralization is normal. Again seen is a comminuted fracture of the 5th metacarpal neck with mild volar angulation of the distal fracture fragment. The appearance is not significantly changed from the prior study. No significant callus formation is noted. The patient is again noted to be status post internal fixation of the mid shafts of the 4th and 5th metacarpals with sideplates and multiple orthopedic screws. The joint spaces are preserved. The soft tissues are unremarkable. XR/XR hand LT min 3V IMPRESSION: Comminuted fracture of the 5th metacarpal neck without change. Electronically signed by: Cipriano Campoverde MD 08/04/2024 08:10 AM EDT
== END 2024-08-03 08:55 | disposition home or self-care (01) ==
LOC: HO.HOSX 08:54
DX: M79.642 Pain in left hand (principal); S62.337A Displaced fracture of neck of fifth metacarpal bone, left hand, initial encounter for closed fracture; X50.0XXA Overexertion from strenuous movement or load, initial encounter; Y93.89 Activity, other specified; Y92.89 Other specified places as the place of occurrence of the external cause; Y99.0 Civilian activity done for income or pay
CPT/HCPCS: 29125; 73130; 99212

== ENCOUNTER 2024-08-03 13:09 | Outpatient (AMB) | payer MEDICARE, MEDICAID, SELFPAY ==
[2024-08-03 13:20] VITALS: BMI 23.2
--- NOTE | 2024-08-03 13:20 | A.OFFVIS_ITS ---
Vital Signs 08/03/24 13:20 Height 6 ft 3 in Weight 186 lb BMI 23.2 Intake Visit Reasons: OV: FX of left fifth MC bone DOI: 07/31/24 Intake Note: Tani is a 38 year old left hand dominant male who presents today for a follow up for his displaced fracture of neck of left fifth metacarpal bone, DOI: 07/21/24. At his last visit on 07/27/24 patient was placed into a 2 finger ulnar gutter splint until swelling went down more. Currently states he he has no pain due to wearing his splint until today. Xrays updated in office. 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 The patient was initially placed in a splint due to significant swelling. The patient reports pain when the fracture area is pressed. 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 the patient reports that he has avoided heavy lifting as much as possible, but has had to lift things heavier than a cell phone at work. Denies numbness or tingling in the left upper extremity. No other acute complaints or concerns at this time. Review of Systems - Neurological: Denies numbness or tingling in the affected hand Systems reviewed and are negative except as per HPI and below Physical Exam Patient is alert, oriented, and in no acute distress. Neuro: Normal sensation of the tips of all digits of the left hand at this time Vascular: Cap refill brisk Pain: Significant tenderness to palpation of the level of the fracture of the left 5th metacarpal neck Significant pain with attempted range of motion of the 5th digit of the left hand ROM: Patient was able to flex and extend the 1st through 3rd digits of the left hand fully and without difficulty Skin: No lacerations or abrasions. General: Significant edema and ecchymosis noted of the ulnar and dorsal aspect of the left hand No erythema or evidence of infection Psych: Appears grossly normal Affect normal Attitude cooperative Results - Imaging: Current x-rays show largely unchanged fracture of the left 5th metacarpal neck. Procedure Two finger ulnar gutter Splint application: The patient was informed of the recommendation to continue with a splint. He consented to this approach and will maintain the current splint for a further two weeks. Plan Continued fracture management will focus on maintaining the Two finger ulnar guttersplint for another two weeks due to persistent swelling, minimizing hand use, and adhering to a strict lifting limitation. Current x-rays reveal no changes or new fractures. The patient should closely monitor splint condition and swelling fluctuations. Any changes could prompt a reassessment of casting needs. Work restrictions were recommended to prevent fracture complications. Follow-up with x-rays in two weeks Patient was informed and verbally consented to the use of an ambient scribe for clinic note documentation during this visit. Discussion Notes I discussed with the patient the need to continue conservative fracture management due to notable swelling. Applying a cast presently could cause complications as the swelling recedes. Maintaining the use of a splint is recommended to accommodate swelling variability. During the visit, I emphasized avoiding lifting anything heavier than a cell phone to ensure effective healing and minimizing reinjury risk. Workplace accommodations were advised, and I suggested potentially not working or switching to desk duties, due to working in a grime-heavy environment that could damage the splint. I agreed to provide a work note regarding light-duty recommendations and weight restrictions. Follow- up in two weeks was scheduled to assess swelling, healing progress, and possible transition to more supportive measures, including a Velcro wrist splint and occupational therapy. Patient Instructions - Continue using the current splint for two additional weeks. - Avoid lifting items heavier than a cell phone. - Contact the office if the splint appears loose or if swelling significantly reduces. - Keep the splint clean and dry; contact office if it becomes damaged. - Adhere to workplace restrictions to prevent complications. - Attend follow-up appointment in two weeks for revaluation and possibly repeat x-rays. - Be prepared for discussions about transition to a Velcro wrist splint and potential occupational therapy. Orders: Orders XR hand LT min 3V Today M79.642 - Pain in left hand Coding Level of Care Code Global (71581) Diagnoses Displaced fracture of neck of left fifth metacarpal bone S62.337A CPT Codes Splint - CPT: 19446-Azcmjgq Splint Application ([id number])
== END 2024-08-03 13:49 | disposition home or self-care (01) ==
LOC: HO.HOS 13:09
DX: S62.337A Displaced fracture of neck of fifth metacarpal bone, left hand, initial encounter for closed fracture (principal)
CPT/HCPCS: 29125; 99024

== ENCOUNTER → 2024-08-03 13:11 | Outpatient (BNV) | payer MEDICARE, MEDICAID, SELFPAY | PROVIDERS: Visit Provider Radiology Diagnostic Radiology | DX: M79.642 Pain in left hand (principal) | CPT/HCPCS: 73130 ==

== ENCOUNTER 2024-08-17 08:36 | Outpatient (REF) | payer MEDICARE, MEDICAID, SELFPAY ==
--- NOTE | ~2024-08-17 | XR_ITS ---
EXAMINATION: XR HAND 3 OR MORE VIEWS LEFT HISTORY: M79.642 - Pain in left hand COMPARISON: Comparison is made with the prior examination dated 08/03/2024. FINDINGS: Four views of the left hand are submitted. Osseous mineralization is normal. Again seen is a comminuted fracture of the 5th metacarpal neck with volar angulation of the distal fracture fragment. There is callus formation seen on the current study, consistent with healing. The fracture line remains visible. The patient is again noted to be status post internal fixation of the 4th and 5th metacarpal shafts is. The joint spaces are preserved. The soft tissues are unremarkable. XR/XR hand LT min 3V IMPRESSION: Healing comminuted fracture of the 5th metacarpal neck. Electronically signed by: Cipriano Campoverde MD 08/18/2024 07:48 AM EDT
== END 2024-08-17 08:37 | disposition home or self-care (01) ==
LOC: HO.HOSX 08:36
DX: M79.642 Pain in left hand (principal); S62.337D Displaced fracture of neck of fifth metacarpal bone, left hand, subsequent encounter for fracture with routine healing; Z98.890 Other specified postprocedural states
CPT/HCPCS: 73130; 99212

== ENCOUNTER → 2024-08-17 11:21 | Outpatient (BNV) | payer MEDICARE, MEDICAID, SELFPAY | PROVIDERS: Visit Provider Radiology Diagnostic Radiology | DX: M79.642 Pain in left hand (principal) | CPT/HCPCS: 73130 ==

== ENCOUNTER 2024-08-17 11:25 | Outpatient (AMB) | payer MEDICARE, MEDICAID, SELFPAY ==
--- NOTE | 2024-08-17 11:25 | MHC.OFFVIS ---
Intake Visit Reasons: OV- left fifth MC bone DOI: 07/31/24-w/xrays Intake Note: Tani is a 38 year old left hand dominant male who presents today for a follow up for his displaced fracture of neck of left fifth metacarpal bone, DOI: 07/21/24. On 08/03/24 he was advised to continue using the current splint for two additional weeks and avoid lifting items heavier than a cell phone. Patient states he has mild pain on the palmar aspect of his left hand just below the left 5th digit. Denies numbness and tingling. States he has stiffness in the left wrist with ROM such as flexion, extension, ulnar and radial deviation and stiffness of left 5th digit. Patient unable to squeeze or make a full closed fight. Discuss work status. Allergies No Known Allergies [No Known Allergies*] Allergy (Verified 08/17/24 11:29) HPI HPI OV- left fifth MC bone DOI: 07/31/24-w/xrays: Details: Tani is a 38 year old left hand dominant male who presents today for a follow up for his displaced fracture of neck of left fifth metacarpal bone, DOI: 07/21/24. On 08/03/24 he was advised to continue using the current splint for two additional weeks and avoid lifting items heavier than a cell phone. Patient states he has mild pain on the palmar aspect of his left hand just below the left 5th digit. Denies numbness and tingling. States he has stiffness in the left wrist with ROM such as flexion, extension, ulnar and radial deviation and stiffness of left 5th digit. Patient unable to squeeze or make a full closed fight. Discuss work status. 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 Neuro: Normal sensation of the tips of all digits of the left hand at this time Vascular: Cap refill brisk Pain: No tenderness to palpation of the level of the fracture of the left 5th metacarpal neck Moderate pain with attempted range of motion of the 5th digit of the left hand, primarily on the dorsal aspect of the digit ROM: Patient was able to flex and extend the 1st through 3rd digits of the left hand fully and without difficulty Skin: No lacerations or abrasions. General: Significant edema and ecchymosis noted of the ulnar and dorsal aspect of the left hand has resolved No erythema or evidence of infection Psych: Appears grossly normal Affect normal Attitude cooperative Results Reviewed Results Reviewed: X-rays obtained in the office today and independently reviewed by me, Luigi Cedillo PA-C, demonstrate minimally displaced fracture of the left 5th metacarpal neck with evidence of interval healing. Assessment & Plan Assessment & Plan (1) Displaced fracture of neck of left fifth metacarpal bone: Code(s): S62.337A - Displaced fracture of neck of fifth metacarpal bone, left hand, initial encounter for closed fracture Category: Medical Plan 1. Left 5th metacarpal neck fracture, minimally displaced Date of injury 07/27/2024 Patient appears to be recovering well from his injury Patient is educated about the typical recovery course At this time, due to his lack of tenderness, significant stiffness, and evidence of healing on x-ray, patient was removed from a cast and is given a Velcro wrist splint to wear with daytime activities as well as kathia tape to wear while awake Patient was educated he should continue with 2 lb weight limit Due to his significant stiffness, OT ordered for early range of motion of the left small finger and ring finger Patient was amenable to this plan Follow-up in 4 weeks with repeat x-rays, sooner with any acute concerns Orders: Orders OT Evaluation and Treatment Today S62.337A - Displaced fracture of neck of fifth metacarpal bone, left hand, initial encounter for closed fracture XR hand LT min 3V Today M79.642 - Pain in left hand Coding Level of Care Code Global (20077) Diagnoses Displaced fracture of neck of left fifth metacarpal bone S62.337A
== END 2024-08-17 12:08 | disposition home or self-care (01) ==
LOC: HO.HOS 11:25
DX: S62.337A Displaced fracture of neck of fifth metacarpal bone, left hand, initial encounter for closed fracture (principal)
CPT/HCPCS: 99024

== ENCOUNTER 2024-08-31 14:15 | Outpatient (RCR) | payer MEDICARE, MEDICAID, SELFPAY ==
--- NOTE | 2024-08-20 12:44 | MHC.OT.EP ---
[address] [phone] Occupational Therapy Plan of Care Patient Name: Tani Hubbard Date of Evaluation: 08/20/24 Diagnosis: displaced fx of neck of L 5th metacarpal Pain Location: Dorsal side of hand Pain Score: 4 Pain Scale Used: Numeric (0 - 10) Aggravating Factors: Movement Alleviating Factors: Tylenol Assessment: Pt is a 38 yr old L hand dominant male who injured his hand at a friends house fixing his car when he dropped an engine onto his L hand. He went to the ED here at [facility] and was diagnosed w/ displaced fracture of neck of his fifth metacarpal. Pt fractured his L wrist at work 3 mos ago - non surgical. Pt has a history of a boxers fracture post surgical 20 + years ago (has internal fixators from this) did not want surgery for this injury. He presents today w/ decreased ROM in his wrist, hand, atrophy of his hypothenar, and edema. Pt would benefit from skilled OT therapy to address these deficits and increase the functional use of his dominant hand to participate in ADLs Frequency and Duration: The patient will be seen 2 xs a week for 6 weeks Short Term Goals: Pt will gain 30 of wrist flexion (60*) Pt will gain 20 of wrist extension (50) Pt will have 80 of supination Make Up Operator Helper Goals: Pt will use his L hand to carry grocery bags (no more than 8 lbs) w/out difficulty Pt will make a pain free composite fist Pt will report 0/10 pain in his L hand w/ actvity Treatment Plan: Therapeutic Exercise Therapeutic Activity Home Exercise Program Splinting Neuro Re-ed Patient Education Desensitization/Sensory Re-ed Edema Control ADL Training Ultrasound NMES Iontophoresis Paraffin Fluidotherapy MHP Joint Mobilization Soft Tissue Mobilization Kinesiotaping Electronically Signed By: Leidy Miller Please Sign and return to therapist. Thank you once again for your referral.
--- NOTE | 2024-09-14 14:44 | MHC.OT.DC ---
[address] [phone] F: [phone] Occupational Therapy Discharge Note Patient Name: Tani Hubbard Provider: Luigi Cedillo Diagnosis: displaced fx of neck of L 5th metacarpal Date of Surgery: Date of Evaluation: 08/20/24 Date of Discharge: Treatments to Date: 1 Cancellations to Date: No Shows to Date: Discharge Status: Visit Non-compliance Discharge Summary: Patient is d/c'd from skilled therapy due to visit no-compliance Electronically Signed By: SUNSHINE Harding/L, CLT Reviewed/agree with student documentation: Therapist: Please Sign and return to therapist, thank you for your referral.
== END 2024-09-14 14:44 | disposition home or self-care (01) ==
LOC: HO.OT 14:15
DX: S62.337D Displaced fracture of neck of fifth metacarpal bone, left hand, subsequent encounter for fracture with routine healing (principal)
CPT/HCPCS: 97110; 97140; 97165; 97535

== ENCOUNTER 2024-09-14 10:28 | Outpatient (REF) | payer MEDICARE, MEDICAID, SELFPAY | END 2024-09-14 10:29 | disposition home or self-care (01) | LOC: HO.HOSX 10:28 | DX: Z13.89 Encounter for screening for other disorder (principal) ==

== ENCOUNTER 2025-03-12 16:28 | Emergency (ER) | payer MEDICARE, MEDICAID, SELFPAY ==
[2025-03-12 16:47] VITALS: BP 146/84; PULSE 79; RESP 14; TEMP 36.5; O2SAT 98; BMI 23.0
--- NOTE | 2025-03-12 16:48 | ED_ITS ---
HPI - General Adult General Chief complaint: Abdominal Pain Stated complaint: Medical Clearance Time Seen by Provider: 03/12/25 18:24 History of Present Illness HPI narrative: Patient is a 39-year-old male reported abdominal pain nausea vomiting for 2 days. Now the pain has completely gone away. Is very hungry. Tolerating fluids. No chest pain. No diaphoresis. She has had no symptoms currently. Came in because his boss asked him to get a note. Patient denies any symptoms currently. Two days ago patient had nausea vomiting. Related Data Previous Rx's ?Medication ?Instructions ?Recorded acetaminophen 500 mg tablet 500 mg PO Q6H PRN pain #30 tabs 04/08/24 (Tylenol Extra Strength) ibuprofen 600 mg tablet 600 mg PO Q6H PRN pain #30 t abs 07/21/24 Allergies Allergy/AdvReac Type Severity Reaction Status Date / Time No Known Allergies (No Known Allergy Verified 03/12/25 16:50 Allergies*) Review of Systems 2 Review of Systems: Positive nausea vomiting positive abdominal pain 2 days ago Yes all other systems are reviewed and are negative PMFSH Past Medical History Attestation statement: The following information was validated with the patient. Medical History Fracture of left distal radius Closed fracture of radial styloid Displaced fracture of neck of left fifth metacarpal bone Surgical History H/O hand surgery Social History Social History Alcohol intake: never Patient Tobacco Use Status: Current someday Tobacco user Substance Use Type: Marijuana Advance Directives: No Advance Directives Information Provided: No Current occupational status: employed Current occupation: [employer]/ left hand Physical Exam ED Exam Exam: Appearance: Alert. Oriented X3. No acute distress. Eyes: Pupils equal, round and reactive to light. ENT: Pharynx normal. Neck: Normal inspection. Neck supple. No lymph nodes noted. No crepitus CVS: Normal heart rate and rhythm. Pulses normal. Normal S1 and S2 Respiratory: No respiratory distress. Breath sounds normal. No Wheezing. No rales Abdomen: Soft and nontender. No rigidity. No distention. good BS x4 Skin: Skin warm and dry. Normal skin color. Normal skin turgor. Extremities: No lower extremity edema. Neurovascular intact to all extremities. No Lacerations. No Rash Neuro: Oriented X 3. No motor deficit. No sensory deficit. Moving all extermities. No slurred speech Vital Signs: Vital Signs - 24 hr 03/12/25 16:47 Temperature 97.7 F Pulse Rate 79 Respiratory Rate 14 Blood Pressure 146/84 H Pulse Oximetry 98 Oxygen Delivery Method Room Air BMI result Body Mass Index 23.0 Course Course Course Narrative: This is an RME: Additional HPI, ROS, PE not included below will be deferred to primary provider. RME assessment and note performed by: Josefina Becerra PA-C This is a [id number] who presents to the ER with a complaint of abdominal pain. Reports that on saturday he had fevers, chills, abdominal pain, nausea, vomiting and diarrhea. Continues to have right lower abdominal pain. Patient with soft abdomen with tenderness palpation in the right lower quadrant. Plan: Labs, UA, further ER evaluation needed. Medical Decision Making Medical Decision Making [facility] Narrative: Patient well-appearing currently has no abdominal pain. The abdominal exam is completely soft nontender. White count is normal. Able to jump up and down without any symptoms. He is very hungry. Repeat abdominal exam is soft nontender. Urine is negative for infection. Will discharge patient home felt at this time patient risk of appendicitis to be low. No diarrhea. No vomiting no coughing or congestion or upper respiratory symptoms. O2 sats normal will discharge home Differential Diagnosis Differential Diagnoses: The differential diagnosis associated with the presentation includes Gastroenteritis, appendicitis Lab Data [facility] Lab Attestation statement: I reviewed the patient's lab results. 03/12/25 17:20 03/12/25 17:20 Labs: Lab Results 03/12/25 03/12/25 Range/Units 17:20 18:37 WBC 8.8 (4.8-10.8) X10*3/uL RBC 5.02 (4.60-5.80) X10*6/uL Hgb 13.9 L (14.0-18.0) g/dl Hct 42.4 (42.0-52.0) % MCV 84.5 (80.0-98.0) fL MCH 27.7 (27.0-33.0) pg MCHC 32.8 (31.0-36.0) g/dl RDW 12.1 (11.0-16.0) % Plt Count 206 (160-400) X10*3/uL MPV 11.9 (9.4-12.4) fL Immature Gran % (Auto) 0.2 (0.0-0.4) % Neut % (Auto) 63.4 (45-73) % Lymph % (Auto) 27.4 (20-40) % [place] % (Auto) 7.8 (2-11) % Eos % (Auto) 1.1 (0-4) % Baso % (Auto) 0.1 (0-2) % Lymph # (Auto) 2.4 (1.2-4.9) X10*3/uL [place] # (Auto) 0.7 (0.1-1.2) X10*3/uL Eos # (Auto) 0.1 (0.0-0.4) X10*3/uL Baso # (Auto) 0.0 (0.0-0.2) X10*3/uL Abs Immat Gran (auto) 0.02 (0.00-0.03) X10*3/uL Absolute Neuts (auto) 5.6 (2.0-8.3) x10*3/uL Absolute Nucleated RBC 0.000 (0.0-0.012) X10*3/uL Nucleated RBC % (auto) 0.0 (0.0-0.2) /100WBC Sodium 141 (135-145) mmol/L Potassium 3.8 (3.3-5.1) mmol/L Chloride 107 (96-108) mmol/L Carbon Dioxide 25 (22-29) mmol/L Anion Gap 13 (12-20) BUN 10 (9-16) mg/dL Creatinine 1.00 (0.5-1.4) mg/dL Estim Creat Clear Calc 114.9 Estimated GFR > 60 Random Glucose 91 (60-115) mg/dL Calcium 9.1 (8.4-10.2) mg/dL Magnesium 2.0 (1.6-2.6) mg/dL Total Bilirubin 0.3 (0.0-1.0) mg/dL Direct Bilirubin 0.1 (0.0-0.5) mg/dL AST 32 (5-37) U/L ALT 32 (0-40) U/L Alkaline Phosphatase 85 (39-117) U/L Total Protein 7.1 (6.5-8.0) g/dL Albumin 4.8 (3.5-5.0) g/dL Lipase 22 (8-78) U/L Urine Color Dark Yellow Urine Appearance Clear Urine pH 5.5 (5.0-9.0) Ur Specific [place] >= 1.030 H (1.005-1.025) Urine Protein Trace (Neg-Trace) mg/dL Urine Glucose (UA) Negative (Negative) mg/dL Urine Ketones Negative (Negative) mg/dL Urine Blood Negative (Negative) Urine Nitrite Negative (Negative) Ur Leukocyte Esterase Negative (Negative) Tests considered The following testing was considered but not selected: No need for CT scan of the abdomen Social Determinants Patient?s care significantly limited by Social Determinants of Health including: Problems related to primary support group Discharge Plan Discharge Clinical Impression: Abdominal pain Patient Disposition: Home, Self-Care Instructions: Abdominal Pain (ED) Additional Instructions: Worsened abdominal pain returned to the emergency department. Small risk of appendicitis exists. Prescriptions: No Action ibuprofen 600 mg tablet 600 mg PO Q6H PRN (Reason: pain) Qty: 30 0RF acetaminophen [Tylenol Extra Strength] 500 mg tablet 500 mg PO Q6H PRN (Reason: pain) Qty: 30 0RF Referrals: Physician,None [Primary Care Provider, Medical] - 03/15/25 Print Language: Portuguese
[2025-03-12 17:44] LABS: MANUAL DIFF FLAG NO
[2025-03-12 17:46] LABS: Hematocrit 42.4 % (42.0-52.0); Hemoglobin 13.9 g/dl (14.0-18.0); Imm Gran Abs Auto 0.02 X10*3/uL (0.00-0.03); Imm Gran Pct Auto 0.2 % (0.0-0.4); Lymphocytes Absolute Auto 2.4 X10*3/uL (1.2-4.9); Mean Corpuscular HGB Conc 32.8 g/dl (31.0-36.0); Mean Corpuscular Hemoglobin 27.7 pg (27.0-33.0); Mean Corpuscular Volume 84.5 fL (80.0-98.0); NRBC Abs Auto 0.000 X10*3/uL (0.0-0.012); NRBC Pct Auto 0.0 /100WBC (0.0-0.2); Platelet Count 206 X10*3/uL (160-400); Red Blood Count 5.02 X10*6/uL (4.60-5.80); White Blood Count 8.8 X10*3/uL (4.8-10.8)
[2025-03-12 18:07] LABS: Alanine Aminotransferase 32 U/L (0-40); Albumin Level 4.8 g/dL (3.5-5.0); Alkaline Phosphatase 85 U/L (39-117); Anion Gap 13 (12-20); Aspartate Amino Transferase 32 U/L (5-37); Blood Urea Nitrogen 10 mg/dL (9-16); Calcium 9.1 mg/dL (8.4-10.2); Carbon Dioxide 25 mmol/L (22-29); Chloride 107 mmol/L (96-108); Creatinine Clr Calc Pharmacy 114.9; Estimated Glomerular Filt Rate > 60; Lipase 22 U/L (8-78); Magnesium 2.0 mg/dL (1.6-2.6); Potassium 3.8 mmol/L (3.3-5.1); Sodium 141 mmol/L (135-145); Total Protein 7.1 g/dL (6.5-8.0)
[2025-03-12 18:51] LABS: Appearance Urine Clear; Glucose Urine UA Negative (Negative); PH 5.5 (5.0-9.0); Specific Gravity - Urine >= 1.030 (1.005-1.025)
[2025-03-12 19:26] VITALS: BP 123/60; PULSE 57; RESP 18; O2SAT 97
[2025-03-12 19:33] VITALS: BP 123/60; PULSE 57; RESP 18; TEMP 36.4; O2SAT 97
== END 2025-03-12 19:34 | disposition home or self-care (01) ==
PROVIDERS: Physician Assistant Medical; Emergency Provider Emergency Medicine Emergency Medical Services
DX: R10.31 Right lower quadrant pain (principal); R10.22 Pelvic and perineal pain left side; R11.2 Nausea with vomiting, unspecified; F17.210 Nicotine dependence, cigarettes, uncomplicated
CPT/HCPCS: 36415; 80048; 80076; 81003; 83690; 83735; 85025; 99283